=== PATIENT | male | born 1950 | race Caucasian/White ===

== ENCOUNTER 2023-09-20 18:46 | Inpatient (IN) | payer OTHER ==
[2023-09-20] MEDS ORDERED: ASPIRIN 81 MG CHEWABLE TABLET ONE (19:30)
[2023-09-20] MEDS ORDERED: HEPARIN/D5W 25,000 UNIT/500 ML BAG IV ONE (19:31)
[2023-09-20 19:32] LABS: Absolute Lymphocytes (CBC) 0.9 K/uL (0.7-4.9); Hematocrit 40.9 % (39.6-49.0); Lymphocytes % 13.3 % (15.3-44.8); MCV 89.4 fL (80-100); MPV 8.2 fL (7.6-11.3); Platelets 216 thou/uL (152-406); RBC Red Blood Cell Count 4.57 M/uL (4.33-5.43)
[2023-09-20 19:35] LABS: Protime INR 1.03
--- NOTE | 2023-09-20 19:45 | RAD REPORT ---
EXAM DESCRIPTION: RADChest Single View09/20/2023 7:34 pm CLINICAL HISTORY: CHEST PAIN COMPARISON: Thorax Wo Con dated 08/27/2023 TECHNIQUE: Portable AP view of the chest. FINDINGS: Patchy left basilar airspace opacities. Decreased inspiratory effort limits evaluation. N o pneumothorax or effusion. The cardiomediastinal contours are unremarkable. IMPRESSION: Patchy left basilar airspace opacities, may reflect pneumonia.
[2023-09-20 19:51] LABS: Albumin 3.5 g/dL (3.4-5.0); Bilirubin Direct 0.1 mg/dL (0-0.2); Bilirubin Indirect, Calculated 0.3 mg/dL (0.2-0.8); Bilirubin Total 0.4 mg/dL (0.2-1.0); Magnesium 1.9 mg/dL (1.6-2.4); Potassium 4.2 mEq/L (3.5-5.1); Protein, Total 7.1 g/dL (6.4-8.2); Troponin High Sensitivity 12.5 pg/mL (<58.9)
--- NOTE | 2023-09-20 20:25 | EDPHYS ---
Physician Documentation [facility] Name: Tay Case Age: 73 yrs Sex: Male : 1950 Arrival Date: 09/20/2023 Time: 18:46 Bed 3 Private MD: Orville Peter T ED Physician Maksim Watts HPI: 09/20 19:00 This 73 yrs old Male presents to ER via Ambulatory with complaints of Chest Pain. snw 19:00 The patient or guardian reports chest pain that is located primarily in the substernal snw area. Onset: suddenly, this morning, and became worse just prior to arrival, and became persistent. The pain does not radiate. Associated signs and symptoms: The patient has no apparent associated signs or symptoms. The chest pain is described as squeezing. Duration: The patient or guardian reports multiple episodes, became persistent. Modifying factors: The symptoms are alleviated by nothing. the symptoms are aggravated by nothing. Severity of pain: At its worst the pain was moderate. The patient has experienced similar episodes in the past. hx of pulmonary fibrosis, cardiomyopathy, 6 stents. Pt taken off blood thinners last year except lose dose asa. Historical: - Allergies: 18:54 No Known Allergies; ll1 - PMHx: 18:54 Coronary atherosclerosis; Hypertensive disorder; pulmonary fibrosis; ll1 - PSHx: 18:54 6 heart stents; ll1 - Immunization history:: Adult Immunizations up to date. - Social history:: Smoking status: Patient denies any tobacco usage or history of. ROS: 19:02 Constitutional: Negative for fever, chills, and weight loss, Eyes: Negative for injury, snw pain, redness, and discharge, ENT: Negative for injury, pain, and discharge, Neck: Negative for injury, pain, and swelling, Respiratory: Negative for shortness of breath, cough, wheezing, and pleuritic chest pain, Abdomen/GI: Negative for abdominal pain, nausea, vomiting, diarrhea, and constipation, Back: Negative for injury and pain, : Negative for injury, bleeding, discharge, and swelling, MS/Extremity: Negative for injury and deformity, Skin: Negative for injury, rash, and discoloration, Neuro: Negative for headache, weakness, numbness, tingling, and seizure, Psych: Negative for depression, anxiety, suicide ideation, homicidal ideation, and hallucinations, 19:02 Cardiovascular: Positive for chest pain, of the anterior aspect of left upper chest, mid-sternal area and left breast, Exam: 18:59 Constitutional: This is a well developed, well nourished patient who is awake, alert, snw and in no acute distress. Head/Face: Normocephalic, atraumatic. Eyes: Pupils equal round and reactive to light, extra-ocular motions intact. Lids and lashes normal. Conjunctiva and sclera are non-icteric and not injected. Cornea within normal limits. Periorbital areas with no swelling, redness, or edema. ENT: Nares patent. No nasal discharge, no septal abnormalities noted. Tympanic membranes are normal and external auditory canals are clear. Oropharynx with no redness, swelling, or masses, exudates, or evidence of obstruction, uvula midline. Mucous membranes moist. Neck: Trachea midline, no thyromegaly or masses palpated, and no cervical lymphadenopathy. Supple, full range of motion without nuchal rigidity, or vertebral point tenderness. No Meningismus. Chest/axilla: Normal chest wall appearance and motion. Nontender with no deformity. No lesions are appreciated. 18:59 Respiratory: Lungs have equal breath sounds bilaterally, clear to auscultation and percussion. No rales, rhonchi or wheezes noted. No increased work of breathing, no retractions or nasal flaring. Abdomen/GI: Soft, non-tender, with normal bowel sounds. No distension or tympany. No guarding or rebound. No evidence of tenderness throughout. Back: No spinal tenderness. No costovertebral tenderness. Full range of motion. Skin: Warm, dry with normal turgor. Normal color with no rashes, no lesions, and no evidence of cellulitis. MS/ Extremity: Pulses equal, no cyanosis. Neurovascular intact. Full, normal range of motion. Neuro: Awake and alert, GCS 15, oriented to person, place, time, and situation. Cranial nerves II-XII grossly intact. Motor strength 5/5 in all extremities. Sensory grossly intact. Cerebellar exam normal. Normal gait. Psych: Awake, alert, with orientation to person, place and time. Behavior, mood, and affect are within normal limits. 18:59 Cardiovascular: Rate: bradycardic, Rhythm: irregularly irregular, Pulses: no pulse deficits are appreciated, Heart sounds: S3, increased, Edema: is not appreciated, JVD: is noted bilaterally, Vital Signs: 18:55 BP 161 / 103; Pulse 62; Resp 17; Temp 97.6; Pulse Ox 95% on R/A; Weight 72.57 kg; ll1 Height 5 ft. 9 in. ; Pain 5/10; 19:34 BP 165 / 89; Pulse 63; Resp 18 S; Pulse Ox 96% on R/A; as6 20:59 BP 169 / 114; Pulse 61; Resp 14 S; Pulse Ox 97% on R/A; as6 22:53 BP 168 / 77; Pulse 65; Resp 19 S; Pulse Ox 97% on R/A; as6 23:36 BP 147 / 97; Pulse 66; Resp 17 S; Pulse Ox 97% on R/A; as6 18:55 Body Mass Index 23.63 (72.57 kg, 175.26 cm) ll1 18:55 Pain Scale: Adult ll1 MDM: 18:59 Patient medically screened. snw 19:03 Differential diagnosis: abnormal EKG, acute myocardial infarction, coronary artery snw disease congestive heart failure stable angina, unstable angina. The patient was given aspirin in the Emergency Department. Data reviewed: vital signs, nurses notes. 19:05 Counseling: I had a detailed discussion with the patient and/or guardian regarding the snw historical points, exam findings, and any diagnostic results supporting the discharge/admit diagnosis. ED course: pt takes daily baby asa but does take an antifibrotic agent for pulmonary fibrosis (Pirfenidone), denies use of blood pressure agent but does take alfuzosin.. 20:23 CATHERINE Risk Score: 1 - patient's age is greater or equal to 65 years, 1 - Three or more snw CAD risk factors, 1- Known CAD, 1 - ASA use in past 7 days, 1 - Recent [<24hrs] Severe Angina, TOTAL SCORE = 5. Management of patient was discussed with the following: Hospitalist: Dr. Falcon will accept for further work up. Historians other than the Patient: Spouse/Significant Other: Med list obtained. Care significantly affected by the following chronic conditions: Diabetes, Hypertension, pulmonary fibrosis. 20:33 Response to treatment: continues with some "discomfort" declines pain medication now, snw Noted several monophasic PVC's on monitor when HR dips to 50s. 09/20 18:49 Order name: Basic Metabolic Panel; Complete Time: 19:52 snw 09/20 18:49 Order name: CBC with Diff; Complete Time: 19:35 snw 09/20 18:49 Order name: LFT's; Complete Time: 19:52 snw 09/20 18:49 Order name: Magnesium; Complete Time: 19:52 snw 09/20 18:49 Order name: NT PRO-BNP; Complete Time: 19:52 snw 09/20 18:49 Order name: PT-INR; Complete Time: 19:36 snw 09/20 18:49 Order name: Troponin HS; Complete Time: 19:52 snw 09/20 21:22 Order name: CBC with Automated Diff [facility] 09/20 21:22 Order name: CBC with Automated Diff [facility] 09/20 21:22 Order name: Comprehensive Metabolic Panel [facility] 09/20 21:22 Order name: Comprehensive Metabolic Panel [facility] 09/20 21:22 Order name: Lipid Profile [facility] 09/20 21:22 Order name: Lipid Profile [facility] 09/20 21:22 Order name: Magnesium [facility] 09/20 21:22 Order name: Magnesium [facility] 09/20 21:22 Order name: NT PRO-BNP [facility] 09/20 21:22 Order name: NT PRO-BNP [facility] 09/20 21:22 Order name: Troponin High Sensitivity [facility] 09/20 21:22 Order name: Troponin High Sensitivity; Complete Time: 23:15 [facility] 09/20 21:22 Order name: Troponin High Sensitivity [facility] 09/20 23:31 Order name: Ptt, Activated as6 09/20 18:49 Order name: XRAY Chest (1 view); Complete Time: 19:48 snw 09/20 19:52 Interpretation: Abnormal: pulmonary fibrosis hx, may need CT PE study for clarification.snw 09/20 21:22 Order name: Echo with Doppler [facility] 09/20 21:22 Order name: Echo with Doppler [facility] 09/20 18:49 Order name: EKG; Complete Time: 18:50 snw 09/20 21:22 Order name: CONS Physician Consult [facility] 09/20 18:49 Order name: Cardiac monitoring; Complete Time: 19:26 snw 09/20 18:49 Order name: EKG - Nurse/Tech; Complete Time: 19:26 snw 09/20 18:49 Order name: IV Saline Lock; Complete Time: 19: snw 09/20 18:49 Order name: Labs collected and sent; Complete Time: : snw 09/20 18:49 Order name: O2 Per Protocol; Complete Time: : snw 09/20 18:49 Order name: O2 Sat Monitoring; Complete Time: 19: snw EC:10 Rate is 61 beats/min. Rhythm is irregular. QRS [place] is Normal. [place] interval is normal. snw QRS interval is normal. T waves are Inverted in leads III, aVR. Clinical impression: NSR w/ Non-specific ST/T Changes and low voltage EKG. Administered Medications: 19:15 Drug: Aspirin PO Chewable Tablet 324 mg PO once; 81 mg tablets x 4 Route: PO; as6 23:37 Follow up: Response: No adverse reaction as6 19:30 Drug: Heparin (ND Drip) 12 units/kg/[place] - ([place] [address] units, D5W IV 500 ml) IV at as6 calculated rate Per protocol; Max initial rate 1000 units/hr {Co-Signature: rv (Dominick Melo RN).} Route: IV; Rate: calculated rate; Site: right forearm; 23:37 Follow up: Response: No adverse reaction; IV Status: Infusion continued upon admission; as6 IV Intake: 100ml Disposition Summary: 09/20/23 20:25 Hospitalization Ordered Notes: Hospitalization Status: Inpatient Admission snw Provider: Denisha Falcon snw Condition: Stable snw Problem: an acute exacerbation snw Symptoms: are unchanged snw Bed/Room Type: Standard snw Location: Telemetry/MedSurg (Inpatient)(09/20/23 22:19) jr12 Room Assignment: 217(09/20/23 23:35) as6 Diagnosis - Chest pain, unspecified snw - Pulmonary fibrosis, unspecified snw Forms: - Medication Reconciliation Form snw - SBAR form snw - Leadership Thank You Letter snw Addendum: 09/23/2023 07:25 I was immediately available for consultation during this patient's visit. I did not e c2 personally see the patient or guide the patient's care.. Signatures: Dispatcher [employer] Laureen Jefferson FNP-C OFFICE ASSISTANT-Csnw Dominick Melo, QUINCY RN rv Sonal Meneses RN RN ll1 Eugene Johnston RN RN as6 Maksim Watts MD MD [address] [place] [id number] Dominick Melo RN rv Corrections: (The following items were deleted from the chart) 09/20 21:03 20:25 Telemetry/MedSurg (Inpatient) snw sn 21:03 20:25 snw sn 22:19 21:03 Intensive Care Unit sn jr12 22:19 21:03 sn jr12 23:01 22:19 217 jr12 rv 23:35 23:01 rv as6
--- NOTE | 2023-09-20 20:25 | ER ---
Nurse's Notes [facility] Name: Tay Case Age: 73 yrs Sex: Male : 1950 Arrival Date: 09/20/2023 Time: 18:46 Bed 3 Private MD: Orville Peter T Diagnosis: Chest pain, unspecified;Pulmonary fibrosis, unspecified Presentation: 09/20 18:55 Chief complaint: Patient states: L sided CP since noon. Coronavirus screen: Vaccine ll1 status: Patient reports receiving the 2nd dose of the covid vaccine. Client denies travel out of the [place] in the last 14 days. At this time, the client does not indicate any symptoms associated with coronavirus-19. Ebola Screen: Patient denies travel to an Ebola-affected area in the 21 days before illness onset. Initial Sepsis Screen: Does the patient meet any 2 criteria? No. Patient's initial sepsis screen is negative. Does the patient have a suspected source of infection? No. Patient's initial sepsis screen is negative. Risk Assessment: Do you want to hurt yourself or someone else? Patient reports no desire to harm self or others. Onset of symptoms was September 20, 2023. 18:55 Method Of Arrival: Ambulatory ll1 18:55 Acuity: BILLY 3 ll1 Triage Assessment: 18:56 General: Appears in no apparent distress. Behavior is calm, cooperative, appropriate ll1 for age. Pain: Complains of pain in L chest Pain currently is 5 out of 10 on a pain scale. Quality of pain is described as squeezing. Cardiovascular: Reports chest pain. Historical: - Allergies: 18:54 No Known Allergies; ll1 - PMHx: 18:54 Coronary atherosclerosis; Hypertensive disorder; pulmonary fibrosis; ll1 - PSHx: 18:54 6 heart stents; ll1 - Immunization history:: Adult Immunizations up to date. - Social history:: Smoking status: Patient denies any tobacco usage or history of. Screenin:27 [facility] ED Fall Risk Assessment (Adult) Score/Fall Risk Level 0 - 2 = Low Risk. Abuse as6 screen: Denies threats or abuse. Denies injuries from another. Nutritional screening: No deficits noted. Tuberculosis screening: No symptoms or risk factors identified. Assessment: 19:34 General: Appears in no apparent distress. comfortable, Behavior is calm, cooperative, as6 appropriate for age. Pain: Complains of pain in chest Quality of pain is described as dull, "discomfort". Neuro: Level of Consciousness is awake, alert, obeys commands, Oriented to person, place, time, situation. Cardiovascular: Reports chest pain, lightheadedness, palpitations, Denies shortness of breath, Heart tones S1 S2 present. Respiratory: Respiratory effort is even, unlabored, Respiratory pattern is regular, symmetrical, Breath sounds are clear bilaterally. GI: No deficits noted. No signs and/or symptoms were reported involving the gastrointestinal system. : No deficits noted. No signs and/or symptoms were reported regarding the genitourinary system. EENT: No deficits noted. No signs and/or symptoms were reported regarding the EENT system. Derm: Skin is intact, is healthy with good turgor. Musculoskeletal: Circulation, motion, and sensation intact. 23:06 Reassessment: Patient appears in no apparent distress at this time. Patient and/or as6 family updated on plan of care and expected duration. Pain level reassessed. Patient is alert, oriented x 3, equal unlabored respirations, skin warm/dry/pink. Vital Signs: 18:55 BP 161 / 103; Pulse 62; Resp 17; Temp 97.6; Pulse Ox 95% on R/A; Weight 72.57 kg; ll1 Height 5 ft. 9 in. ; Pain 5/10; 19:34 BP 165 / 89; Pulse 63; Resp 18 S; Pulse Ox 96% on R/A; as6 20:59 BP 169 / 114; Pulse 61; Resp 14 S; Pulse Ox 97% on R/A; as6 22:53 BP 168 / 77; Pulse 65; Resp 19 S; Pulse Ox 97% on R/A; as6 23:36 BP 147 / 97; Pulse 66; Resp 17 S; Pulse Ox 97% on R/A; as6 18:55 Body Mass Index 23.63 (72.57 kg, 175.26 cm) ll1 18:55 Pain Scale: Adult ll1 ED Course: 18:48 Patient arrived in ED. im 18:50 Laureen Alan FNP-C is [facility]. snw 18:50 Maksim Watts MD is Attending Physician. snw 18:54 Arm band placed on Patient placed in an exam room, on a stretcher. ll1 18:56 Triage completed. ll1 18:59 Orville Peter MD is Private Physician. snw 19:03 Eugene Johnston, QUINCY is Primary Nurse. as6 19:20 Inserted saline lock: 20 gauge in right antecubital area, using aseptic technique. as6 Blood collected. 19:20 Inserted saline lock: 20 gauge in right forearm, using aseptic technique. as6 19:27 Troponin HS Sent. as6 19:27 PT-INR Sent. as6 19:27 NT PRO-BNP Sent. as6 19:27 Magnesium Sent. as6 19:27 LFT's Sent. as6 19:27 CBC with Diff Sent. as6 19:27 Basic Metabolic Panel Sent. as6 19:36 XRAY Chest (1 view) In Process Unspecified. EDMS 19:37 Bed in low position. Call light in reach. as6 20:24 Denisha Falcon MD is Hospitalizing Provider. snw 23:06 Provided Education on: need for admit. as6 23:06 No provider procedures requiring assistance completed. Patient admitted, IV remains in as6 place. Administered Medications: 19:15 Drug: Aspirin PO Chewable Tablet 324 mg PO once; 81 mg tablets x 4 Route: PO; as6 23:37 Follow up: Response: No adverse reaction as6 19:30 Drug: Heparin ([place] Drip) 12 units/kg/[place] - ([place] [address] units, D5W IV 500 ml) IV at as6 calculated rate Per protocol; Max initial rate 1000 units/hr {Co-Signature: rv (Dominick Melo RN).} Route: IV; Rate: calculated rate; Site: right forearm; 23:37 Follow up: Response: No adverse reaction; IV Status: Infusion continued upon admission; as6 IV Intake: 100ml Medication: 19:37 VIS not applicable for this client. as6 Intake: 23:37 IV: 100ml; Total: 100ml. as6 Outcome: 20:25 Decision to Hospitalize by Provider. snw 23:06 Condition: stable as6 23:06 Instructed on the need for admit, 23:36 Admitted to Med/surg accompanied by nurse, via wheelchair, room 217, with chart, as6 23:39 Patient left the ED. rv Signatures: Dispatcher [facility] EDAK Laureen Alan, STEEL TESTER-C STEEL TESTER-Csnw Dominick Melo, RN RN rv Gideon, Sonal, RN RN ll1 Eugene Johnston, RN RN as6 Marsha Dudley Ronaldo RN rv
--- NOTE | 2023-09-20 21:13 | P.HP ---
Certification for Inpatient Patient admitted to: Inpatient With expected LOS: >2 Midnights Patient will require the following post-hospital care: None Practitioner: I am a practitioner with admitting privileges, knowledge of patient current condition, hospital course, and medical plan of care. Services: Services provided to patient in accordance with Admission requirements found in Title 42 Section 412.3 of the Code of Federal Regulations Patient History Date of Service: 09/20/23 Reason for admission: Unstable angina History of Present Illness: Patient is a 73-year-old gentleman who has a history of coronary artery disease status post 6 stents, history of pulmonary fibrosis for which he moved down here from [place] to try to get a lung transplant. He presented to the hospital having some chest pressure. He said he had extensive cardiac work-up done a year ago when he was on the transplant list. After given his cardiac work-up he had an occlusion of one of his coronary arteries for which she had a stent placed. He was on Brilinta for about a year. A month ago Dr. Garcia did a cardiac stress test which came back unremarkable. At that point, he was taken off the Brilinta. He is also had issues with his blood pressure. Is been very labile over the last couple years. He was on lisinopril and Lopressor which was stopped. He states his blood pressure runs with a systolic under 120s. Today he has been having some chest pressure. His mean arterial blood pressure is significantly elevated. He has been having persistent chest pressure that is not relieving. He is on Ranexa for angina. He said normally that helps with the chest pressure but today it has not helped him. He came into the emergency room for further evaluation. In the ER she was evaluated by nurse practitioner, Florinda Alan. Patient was started on a heparin drip. We will continue with antiplatelet therapy and statin therapy. We will continue with strict blood pressure control. Patient will be admitted to the hospital for further evaluation. Home medications list reviewed: No - Past Medical/Surgical History -: CAD with stent -: Pulmonary fibrosis -: Pulmonary hypertension -: Cardiac catheterization - Family History Father Family History: Reviewed- Non-Contributory - Social History Smoking Status: Former smoker Review of Systems 10-point ROS is otherwise unremarkable Physical Examination - Vital Signs Temperature: 98 F Blood Pressure: 180/110 Pulse: 80 Respirations: 18 Pulse Ox (%): 95 - Physical Exam General: Alert, In no apparent distress, Oriented x3 HEENT: Atraumatic, PERRLA, Mucous membr. moist/pink, EOMI, Sclerae nonicteric Neck: Supple, 2+ carotid pulse no bruit, No LAD, Without JVD or thyroid abnormality Respiratory: Diminished, Crackles/rales Cardiovascular: Regular rate/rhythm, Normal S1 S2, Systolic murmur Gastrointestinal: Normal bowel sounds, Soft and benign, Non-distended, No tenderness Musculoskeletal: No clubbing, No swelling, No tenderness Integumentary: No rashes Neurological: Normal gait, Normal speech, Normal strength at 5/5 x4 extr, Normal tone, Sensation intact, Cranial nerves 3-12 intact, Normal affect Lymphatics: No axilla or inguinal lymphadenopathy - Studies Laboratory Data (last 24 hrs) 09/20/23 09/20/23 09/20/23 19:26 19:26 19:26 WBC 6.50 Hgb 13.6 Hct 40.9 Plt Count 216 PT 11.3 INR 1.03 Sodium 136 Potassium 4.2 BUN 19 H Creatinine 1.38 H Glucose 162 H Magnesium 1.9 Total Bilirubin 0.4 AST 15 ALT 22 Alkaline Phosphatase 130 H Assessment & Plan - Problems (Diagnosis) (1) Unstable angina Current Visit: Yes Status: Acute (2) History of heart artery stent Current Visit: Yes Status: Acute (3) Pulmonary hypertension Current Visit: Yes Status: Acute - Plan -High-sensitivity troponin -Cardiology consultation -Echocardiogram and stress test per cardiology recommendation -Repeat EKG -Work-up for other etiologies of cardiac chest pain if troponins remain negative -Lipid profile -Spray Drier regarding modifying risk for cardiac disease - Advance Directives Does patient have a Living Will: No Does patient have a Durable POA for Healthcare: No
[2023-09-20] MEDS ORDERED: ONDANSETRON 4 MG/2 ML VIAL IV PRN (21:14)
[2023-09-20] MEDS ORDERED: ALPRAZOLAM 0.25 MG TABLET PO PRN (21:14)
[2023-09-20] MEDS ORDERED: HYDRALAZINE HCL 20 MG/ML VIAL IV PRN (21:14)
[2023-09-20] MEDS ORDERED: HYDRALAZINE HCL 20 MG/ML VIAL ONE (22:58)
[2023-09-21 00:45] VITALS: BMI 23.1
[2023-09-21] MEDS ORDERED: MORPHINE 2 MG/ML SYR IV PRN (01:39)
[2023-09-21] MEDS ORDERED: predniSONE 20 MG TAB PO ONE (01:39)
[2023-09-21] MEDS ORDERED: FORMOTEROL IH SCH (01:45)
[2023-09-21] MEDS ORDERED: GLYCOPYR IH SCH (01:45)
[2023-09-21] MEDS ORDERED: BUDESONIDE IH SCH (01:45)
[2023-09-21 03:31] LABS: Absolute Lymphocytes (CBC) 1.1 K/uL (0.7-4.9); Hematocrit 37.6 % (39.6-49.0); Lymphocytes % 15.8 % (15.3-44.8); MCV 88.9 fL (80-100); MPV 8.6 fL (7.6-11.3); Platelets 205 thou/uL (152-406); RBC Red Blood Cell Count 4.23 M/uL (4.33-5.43)
[2023-09-21 03:44] LABS: Albumin 3.4 g/dL (3.4-5.0); Bilirubin Total 0.3 mg/dL (0.2-1.0); Magnesium 2.1 mg/dL (1.6-2.4); Protein, Total 6.8 g/dL (6.4-8.2)
[2023-09-21] MEDS ORDERED: GLUCAGON 1 MG/VIAL IM PRN (07:39)
[2023-09-21] MEDS ORDERED: D50W 25 GM/50 ML SYRINGE IV PRN (07:39)
[2023-09-21] MEDS: VALSARTAN 80 MG TAB PO SCH ×2 (09:01→20:07)
[2023-09-21] MEDS: PANTOPRAZOLE 40MG TABLET PO SCH (09:01)
[2023-09-21] MEDS: ENOXAPARIN 80 MG/0.8 ML SQ SCH ×2 (09:01→20:05)
[2023-09-21] MEDS: METOPROLOL TAR 25 MG TAB PO SCH ×2 (09:01→20:03)
[2023-09-21] MEDS: ASPIRIN 325 MG TAB PO SCH (09:02)
[2023-09-21] MEDS: INSULIN GLARGINE 100 UNIT/ML SQ SCH (09:02)
--- NOTE | 2023-09-21 09:18 | P.PN ---
Date of Service: 09/21/23 Subjective: Still having "squeezing" chest pain although improved from last night Denies shortness of breath over baseline On nasal cannula oxygen-has at home ROS: 10 point ROS as noted above, otherwise negative Physical exam GEN: Alert, oriented, NAD HEENT: Normal conjunctiva, sclera anicteric CV: Regular rate and rhythm, no edema Pulm: Nonlabored respirations on room air ABD: Soft, nontender, nondistended MSK: No joint tenderness Integumentary: No rashes Neuro: Normal speech, normal affect Vitals reviewed Problem List Unstable angina-history of CAD Pulmonary fibrosis/pulmonary hypertension Diabetes mellitus type 2insulin-dependent GERD Hypertension Plan Unstable angina-history of CAD Reports having stress test about 1 to 2 months ago that was normal Was taken off of his Brilinta at that time Had a heart catheterization in 2021 with stent placement [address] Continue home medications, aspirin, therapeutic Lovenox Cardiology consult, echocardiogram ordered Pulmonary fibrosis/pulmonary hypertension Home medications continued, at baseline oxygen requirement/breathing Diabetes mellitus type 2insulin-dependent ACHS Accu-Chek, sliding scale insulin, ADA diet GERD Continue pantoprazole Hypertension Continue metoprolol VTE: Therapeutic Lovenox Code: Full Dispo: Discharge home 24 to 48 hours Time Spent Managing Pts Care (In Minutes): 35
[2023-09-21] MEDS: INSULIN REGULAR (HUMAN) 100 UNIT/ML SQ SCH ×3 (11:36→20:10)
[2023-09-21] MEDS ORDERED: ATORVASTATIN 20 MG TAB PO SCH (21:00)
[2023-09-21 22:35] VITALS: O2SAT 96
[2023-09-22] MEDS: INSULIN REGULAR (HUMAN) 100 UNIT/ML SQ SCH ×2 (07:30→11:30)
[2023-09-22] MEDS: METOPROLOL TAR 25 MG TAB PO SCH (08:00)
[2023-09-22] MEDS: ASPIRIN 325 MG TAB PO SCH (08:39)
[2023-09-22] MEDS: VALSARTAN 80 MG TAB PO SCH (08:39)
[2023-09-22] MEDS: ENOXAPARIN 80 MG/0.8 ML SQ SCH (08:40)
[2023-09-22] MEDS: PANTOPRAZOLE 40MG TABLET PO SCH (08:40)
[2023-09-22] MEDS: INSULIN GLARGINE 100 UNIT/ML SQ SCH (08:41)
[2023-09-22 09:08] VITALS: TEMP 97
--- NOTE | 2023-09-22 10:30 | P.PN ---
Date of Service: 09/22/23 Subjective: No chest pain now since yesterday Denies shortness of breath over baseline On nasal cannula oxygen-has at home ROS: 10 point ROS as noted above, otherwise negative Physical exam GEN: Alert, oriented, NAD HEENT: Normal conjunctiva, sclera anicteric CV: Regular rate and rhythm, no edema Pulm: Nonlabored respirations on room air ABD: Soft, nontender, nondistended MSK: No joint tenderness Integumentary: No rashes Neuro: Normal speech, normal affect Vitals reviewed Problem List Unstable angina-history of CAD Pulmonary fibrosis/pulmonary hypertension Diabetes mellitus type 2insulin-dependent GERD Hypertension Plan Unstable angina-history of CAD Reports having stress test about 1 to 2 months ago that was normal Was taken off of his Brilinta at that time Had a heart catheterization in 2021 with stent placement [address] Continue home medications, aspirin, therapeutic Lovenox Cardiology consult, echocardiogram ordered pain improved today, awaiting echo/cardiology eval Pulmonary fibrosis/pulmonary hypertension Home medications continued, at baseline oxygen requirement/breathing Diabetes mellitus type 2insulin-dependent ACHS Accu-Chek, sliding scale insulin, ADA diet GERD Continue pantoprazole Hypertension Continue metoprolol VTE: Therapeutic Lovenox Code: Full Dispo: Discharge home 24 to 48 hours after cardiology eval Time Spent Managing Pts Care (In Minutes): 35
--- NOTE | 2023-09-22 16:08 | P.DS ---
Admission Date: 09/20/23 Discharge Date: 09/22/23 Disposition: ROUTINE DISCHARGE Discharge Condition: GOOD Reason for Admission: Unstable angina Procedures: Problem List Unstable angina-history of CAD Pulmonary fibrosis/pulmonary hypertension Diabetes mellitus type 2insulin-dependent GERD Hypertension Brief History of Present Illness: Patient is a 73-year-old gentleman who has a history of coronary artery disease status post 6 stents, history of pulmonary fibrosis for which he moved down here from [place] to try to get a lung transplant. He presented to the hospital having some chest pressure. He said he had extensive cardiac work-up done a year ago when he was on the transplant list. After given his cardiac work-up he had an occlusion of one of his coronary arteries for which she had a stent placed. He was on Brilinta for about a year. A month ago Dr. Garcia did a cardiac stress test which came back unremarkable. At that point, he was taken o ff the Brilinta. He is also had issues with his blood pressure. Is been very labile over the last couple years. He was on lisinopril and Lopressor which was stopped. He states his blood pressure runs with a systolic under 120s. Today he has been having some chest pressure. His mean arterial blood pressure is significantly elevated. He has been having persistent chest pressure that is not relieving. He is on Ranexa for angina. He said normally that helps with the chest pressure but today it has not helped him. He came into the emergency room for further evaluation. In the ER she was evaluated by nurse practitioner, Florinda Alan. Patient was started on a heparin drip. We will continue with antiplatelet therapy and statin therapy. We will continue with strict blood pressure control. Patient will be admitted to the hospital for further evaluation. Hospital Course: Patient was admitted to the hospital for chest pain, he had pain overnight on day of admission but became pain free later in the morning on 09/21. He has remained chest pain free since then and his troponins have remained negative x4. Due to unforeseen circumstances a glass beveller was not available to see patient today. Discussed staying again overnight for an evaluation from cardiology. Patient stated that since he is feeling better now without pain he would rather go home and follow up outpatient with cardiology. His last stress was one month ago and reportedly normal, last cath one year ago with stent placement. Discussed calling cardiology in the morning to schedule appointment and strict return precautions. Continue all home medications. Vital Signs/Physical Exam: Temp Pulse Resp BP Pulse Ox 97.0 F 46 L 16 147/73 H 95 09/22/23 12:00 09/22/23 12:00 09/22/23 12:00 09/22/23 12:00 09/22/23 12:00 General: Alert, In no apparent distress, Oriented x3 HEENT: Atraumatic, PERRLA Neck: Supple, JVD not distended Respiratory: Clear to auscultation bilaterally Cardiovascular: Regular rate/rhythm, Normal S1 S2 Gastrointestinal: Normal bowel sounds Musculoskeletal: No tenderness Integumentary: No rashes Neurological: Normal speech Laboratory Data at Discharge: WBC 6.70 thou/uL (4.3-10.9) 09/21/23 02:30 Hgb 12.8 g/dL (13.6-17.9) L 09/21/23 02:30 Hct 37.6 % (39.6-49.0) L 09/21/23 02:30 Plt Count 205 thou/uL (152-406) 09/21/23 02:30 PT 11.3 SECONDS (9.5-12.5) 09/20/23 19:26 INR 1.03 09/20/23 19:26 APTT 42.2 SECONDS (24.3-36.9) H 09/20/23 23:35 Sodium 139 mEq/L (136-145) 09/21/23 02:30 Potassium 4.0 mEq/L (3.5-5.1) 09/21/23 02:30 BUN 19 mg/dL (7-18) H 09/21/23 02:30 Creatinine 1.27 mg/dL (0.70-1.30) 09/21/23 02:30 Glucose 147 mg/dL (74-106) H 09/21/23 02:30 Magnesium 2.1 mg/dL (1.6-2.4) 09/21/23 02:30 Total Bilirubin 0.3 mg/dL (0.2-1.0) 09/21/23 02:30 AST 15 U/L (15-37) 09/21/23 02:30 ALT 23 U/L (16-61) 09/21/23 02:30 Alkaline Phosphatase 121 U/L (45-117) H 09/21/23 02:30 Triglycerides 152 mg/dL (<150) H 09/21/23 02:30 Cholesterol 108 mg/dL (<200) 09/21/23 02:30 HDL Cholesterol 35 mg/dL (40-60) L 09/21/23 02:30 Cholesterol/HDL Ratio 3.09 09/21/23 02:30 Home Medications: Albuterol Sulfate [Proair Digihaler] 90 mcg IH PRN 09/21/23 Alfuzosin HCl [Alfuzosin HCl ER] 10 mg PO DAILY 09/21/23 Aspirin [Aspirin EC] 81 mg PO DAILY 09/21/23 Atorvastatin Calcium [Lipitor] 40 mg PO DAILY 09/21/23 Budesonide/Glycopyr/Formoterol [Breztri Aerosphere Inhaler] 160 mcg IH PRN 09/21/23 Dapagliflozin Propanediol [Farxiga] 5 mg PO DAILY 09/21/23 Fluvoxamine Maleate 50 mg PO BID 09/21/23 Insulin Glargine/Lixisenatide [Soliqua 100 Unit-33 Mcg/ml Pen] 20 units SQ DAILY 09/21/23 Metformin HCl [Glucophage*] 500 mg PO BID 09/21/23 Pantoprazole Sodium [Protonix] 40 mg PO DAILY 09/21/23 Ranolazine [Ranolazine ER] 500 mg PO BID 09/21/23 Physician Discharge Instructions: Patient was admitted to the hospital for chest pain, he had pain overnight on day of admission but became pain free later in the morning on 09/21. He has remained chest pain free since then and his troponins have remained negative x4. Due to unforeseen circumstances a glass beveller was not available to see patient today. Discussed staying again overnight for an evaluation from cardiology. Patient stated that since he is feeling better now without pain he would rather go home and follow up outpatient with cardiology. His last stress was one month ago and reportedly normal, last cath one year ago with one stent placement. Discussed calling cardiology in the morning to schedule appointment and strict return precautions. Continue all home medications. Diet: AHA Activity: Ad janice Followup: Ramsey Oliva MD [ACTIVE - CAN ADMIT] - Orville Peter MD [Primary Care Provider] - 2-3 Days Time spent managing pt's care (in minutes): 35
[2023-09-22 16:17] VITALS: BP 123/69
--- NOTE | 2023-09-23 07:21 | ECHO ---
HEIGHT: 5 ft 9 in WEIGHT: 156 lb 11.2 oz DATE OF STUDY: 09/22/[address]: Denisha Falcon MD 2-DIMENSIONAL: YES M.MODE: YES DOPPLER: YES COLOR FLOW: YES TDS: PORTABLE: YES DEFINITY: BUBBLE STUDY: DIAGNOSIS: CORONARY ARTERY DISEASE CARDIAC HISTORY: CATHERIZATION: YES SURGERY: NO PROSTHETIC VALVE: NO PACEMAKER: NO MEASUREMENTS (cm) DIASTOLIC (NORMALS) SYSTOLIC (NORMALS) IVSd 1.2 (0.6-1.2) LA Diam 3.8 (1.9-4.0) LVEF 51% LVIDd 3.7 (3.5-5.7) LVIDs 2.7 (2.0-3.5) %FS 25% LVPWd 1.2 (0.6-1.2) Ao Diam 3.0 (2.0-3.7) 2 DIMENSIONAL ASSESSMENT: RIGHT ATRIUM: MILDLY DILATED LEFT ATRIUM: MILD TO MODERATE DILATED RIGHT VENTRICLE: NORMAL LEFT VENTRICLE: NORMAL, 50-55% TRICUSPID VALVE: NORMAL TRACE TRICUSPID REGURGITATION MITRAL VALVE: NORMAL, TRACE MITRAL REGURGITATION PULMONIC VALVE: NORMAL AORTIC VALVE: NORMAL PERICARDIAL EFFUSION: NONE AORTIC ROOT: LEFT VENTRICULAR WALL MOTION: DOPPLER/COLOR FLOW: COMMENTS: 1. MILDLY DILATED RIGHT ATRIUM 2. MILD TO MODERATE DILATED LEFT ATRIUM 3. TRACE TRICUSPID REGURGITATION 4. TRACE MITRAL REGURGITATION TECHNOLOGIST: SAL ZIMMER
--- NOTE | 2023-09-24 17:35 | EKG ---
Test Date: 2023-09-20 Test Time: 19:08:23 General Supervisor: MEASUREMENT RESULTS: Intervals: Rate: 61 WY: 152 QRSD: 90 QT: 456 QTc: 459 [place]: P: 25 WY: 152 QRS: 32 T: 12 INTERPRETIVE STATEMENTS: Sinus rhythm with marked sinus arrhythmia Otherwise normal ECG No previous ECG available for comparison Electronically Signed On 09-24-23 17:26:01 PRESS SHOP SUPERVISOR by Ramsey Oliva
== END 2023-09-22 17:00 | disposition home or self-care (01) | DRG 303 ==
LOC: ER 18:46 → ERHOLD 21:15 → 2ND 22:40
PROVIDERS: ADMIT Hospitalist; ATTEND Hospitalist
DX: I25.110 Atherosclerotic heart disease of native coronary artery with unstable angina pectoris (principal); I10 Essential (primary) hypertension; E11.9 Type 2 diabetes mellitus without complications; I49.3 Ventricular premature depolarization; J84.10 Pulmonary fibrosis, unspecified; K21.9 Gastro-esophageal reflux disease without esophagitis; I27.20 Pulmonary hypertension, unspecified; I25.10 Atherosclerotic heart disease of native coronary artery without angina pectoris; Z79.4 Long term (current) use of insulin; Z95.5 Presence of coronary angioplasty implant and graft; Z87.891 Personal history of nicotine dependence; Z79.82 Long term (current) use of aspirin; Z79.84 Long term (current) use of oral hypoglycemic drugs; Z79.899 Other long term (current) drug therapy
CPT/HCPCS: 36415; 71045; 80048; 80053; 80061; 80076; 82947; 83735; 83880; 84484; 85025; 85610; 85730; 93005; 93306; 96365; 96366; 99285; J0360; J2270; J7512

== ENCOUNTER 2023-10-08 07:35 | Observation (INO) | payer OTHER ==
[2023-10-08 08:08] LABS: Absolute Lymphocytes (CBC) 0.7 K/uL (0.7-4.9); Hematocrit 39.7 % (39.6-49.0); Lymphocytes % 10.1 % (15.3-44.8); MCV 90.5 fL (80-100); MPV 8.4 fL (7.6-11.3); Platelets 218 thou/uL (152-406); RBC Red Blood Cell Count 4.39 M/uL (4.33-5.43)
--- NOTE | 2023-10-08 08:20 | RAD REPORT ---
EXAM DESCRIPTION: Vilma Single View10/08/2023 8:06 am CLINICAL HISTORY: Chest pain COMPARISON: September 20, 2023 FINDINGS: Arvz-iy-dxnxrite bilateral subpleural interstitial opacities are unchanged probably pulmon renée fibrosis. A small lung nodules unchanged The heart is mildly enlarged
[2023-10-08 08:21] LABS: Potassium 4.3 mEq/L (3.5-5.1); Troponin High Sensitivity 13.2 pg/mL (<58.9)
--- NOTE | 2023-10-08 08:27 | ER ---
Nurse's Notes [facility] Name: Tay Case Age: 73 yrs Sex: Male : 1950 Arrival Date: 10/08/2023 Time: 07:35 Bed 4 Private MD: Diagnosis: Chest pain, unspecified;Atherosclerotic heart disease of [place] coronary artery;Essential (primary) hypertension Presentation: 10/08 07:45 Chief complaint: Patient states: L CP for 2 days. Radiates into L arm. Saw Dr. Oliva's 1 quality control assistant yesterday, angiogram scheduled 10/23. Coronavirus screen: Vaccine status: Patient reports receiving the 2nd dose of the covid vaccine. Client denies travel out of the [place] in the last 14 days. At this time, the client does not indicate any symptoms associated with coronavirus-19. Ebola Screen: Patient denies travel to an Ebola-affected area in the 21 days before illness onset. Initial Sepsis Screen: Does the patient meet any 2 criteria? No. Patient's initial sepsis screen is negative. Does the patient have a suspected source of infection? No. Patient's initial sepsis screen is negative. Risk Assessment: Do you want to hurt yourself or someone else? Patient reports no desire to harm self or others. Onset of symptoms was October 07, 2023. 07:45 Method Of Arrival: Ambulatory 1 07:45 Acuity: BILLY 3 ll1 Triage Assessment: 07:47 General: Appears in no apparent distress. Behavior is calm, cooperative, appropriate ll1 for age. Pain: Complains of pain in L chest Pain radiates to left arm Pain currently is 6 out of 10 on a pain scale. Cardiovascular: Chest pain is described as mild, is located in left anterior. Historical: - Allergies: 07:45 No Known Allergies; ll1 - Home Meds: 08:08 clopidogrel 75 mg oral tablet daily [Active]; pantoprazole 40 mg oral tablet, delayed aa5 release (enteric coated) once [Active]; alfuzosin 10 mg oral Tablet, Extended Release 24 hr once [Active]; metformin 500 mg Oral tablet 2 times per day [Active]; ranolazine 500 mg oral Tablet, Extended Release 12 hr 2 times per day [Active]; Farxiga 5 mg oral tablet [Active]; atorvastatin 40 mg oral tablet [Active]; fluvoxamine 50 mg oral tablet 2 times per day [Active]; - PMHx: 07:45 coronary atherosclerosis; Hypertensive disorder; pulmonary fibrosis; ll1 - PSHx: 07:45 6 heart stents; ll1 - Immunization history:: Adult Immunizations up to date. - Social history:: Smoking status: Patient denies any tobacco usage or history of. Screenin:00 [facility] ED Fall Risk Assessment (Adult) History of falling in the last 3 months, aa5 including since admission No falls in past 3 months (0 pts). Abuse screen: Denies threats or abuse. Nutritional screening: No deficits noted. Tuberculosis screening: No symptoms or risk factors identified. Assessment: 07:45 General: Appears comfortable, Behavior is calm, cooperative. Pain: Complains of pain in aa5 anterior aspect of left upper chest Pain radiates to left arm Pain currently is 6 out of 10 on a pain scale. Quality of pain is described as sharp, shooting, Pain began 1 day ago. Is continuous. Neuro: Level of Consciousness is awake, alert, obeys commands, Oriented to person, place, time, situation. Cardiovascular: Heart tones S1 S2 present Rhythm is irregular. Respiratory: Airway is patent Respiratory effort is even, unlabored, Respiratory pattern is regular, symmetrical, Breath sounds are clear bilaterally. GI: Abdomen is round non-distended, Bowel sounds present X 4 quads. Abd is soft and non tender X 4 quads. : No signs and/or symptoms were reported regarding the genitourinary system. EENT: No signs and/or symptoms were reported regarding the EENT system. Derm: Skin is dry, Skin is pale, Skin temperature is warm Bruising that is dark purple, green, yellow, on lower abdomen, about the bruising the pt states "I was in the hospital a couple weeks ago for chest pain and they were giving me heparin shots and stuff". Musculoskeletal: Range of motion: intact in all extremities. 07:59 Reassessment: Pt states "I took 2 full aspirins today (325mg x 2) and I took 2 plavix aa5 tabs last night and 1 plavix tab this morning". Pt's states "He saw the business transformation analyst yesterday and they put him on Plavix yesterday". Pt reports he has cardiac cath scheduled in 2 weeks. . 09:00 Reassessment: Patient is alert, oriented x 3, equal unlabored respirations, skin aa5 warm/dry/pink. 10:39 Reassessment: Patient appears in no apparent distress at this time. No changes from mb9 previously documented assessment. Patient and/or family updated on plan of care and expected duration. Pain level reassessed. Patient is alert, oriented x 3, equal unlabored respirations, skin warm/dry/pink. 11:11 Reassessment: See [facility] for further charting. mb9 Vital Signs: 07:45 BP 158 / 93; Pulse 50; Resp 16; Temp 97.8; Pulse Ox 98% on R/A; Weight 70.31 kg; Height ll1 5 ft. 9 in. ; Pain 6/10; 08:00 BP 156 / 103; Pulse 60; Resp 17; Pulse Ox 97% on R/A; db 09:30 BP 165 / 74; Pulse 55; Resp 16; Pulse Ox 98% on R/A; db 10:38 BP 161 / 93; Pulse 68; Resp 18; Pulse Ox 99% on R/A; mb9 07:45 Body Mass Index 22.89 (70.31 kg, 175.26 cm) ll1 07:45 Pain Scale: Adult ll1 ED Course: 07:38 Patient arrived in ED. im 07:39 John Vergara DO is Attending Physician. ms3 07:45 Arm band placed on Patient placed in an exam room, on a stretcher. ll1 07:45 Patient has correct armband on for positive identification. Bed in low position. Call aa5 light in reach. Side rails up X2. Client placed on continuous cardiac and pulse oximetry monitoring. NIBP monitoring applied. 07:47 Triage completed. ll1 07:53 Yoly Davis, RN is Primary Nurse. aa5 07:54 Initial lab(s) drawn, by me, sent to lab. Inserted saline lock: 20 gauge in right aa5 forearm, using aseptic technique. Blood collected. 08:04 No provider procedures requiring assistance completed. Patient maintains SpO2 aa5 saturation greater than 95% on room air. 08:08 XRAY Chest (1 view) In Process Unspecified. EDMS 08:25 Khai Martinez is Hospitalizing Provider. ms3 10:00 Report given to Marylou Negron RN. aa5 11:12 Patient admitted, IV remains in place. mb9 Administered Medications: 07:58 Not Given (Pt reports he took 325mg ASA x 2 tabs DESIGN SPECIALIST.): aspirinchewable tablet 324 mg aa5 PO once; 81 mg tablets x 4 13:24 Drug: morphine IVP or IV 4 mg IVP once over 4 mins Route: IVP; Infused Over: 4 mins; mb9 Site: right forearm; 15:37 Follow up: Response: No adverse reaction mb9 Medication: 16:12 VIS not applicable for this client. mb9 Outcome: 08:26 Decision to Hospitalize by Provider. ms3 16:12 Admitted to Tele accompanied by [facility], via wheelchair, room 413, with chart, Report mb9 called to [facility] 16:12 Condition: stable 16:12 Patient left the ED. mb9 Signatures: Dispatcher [employer] EDMS Yoly Davis, RN RN aa5 Sonal Meneses RN RN ll1 John Vergara, DO ms3 Zenaida Paredes RN RN Marylou Castillo RN RN mb9 Marsha Dudley
--- NOTE | 2023-10-08 08:27 | EDPHYS ---
Physician Documentation [facility] Name: Tay Case Age: 73 yrs Sex: Male : 1950 Arrival Date: 10/08/2023 Time: 07:35 Bed 4 Private MD: ED Physician John Vergara HPI: 10/08 08:18 This 73 yrs old Male presents to ER via Ambulatory with complaints of Chest Pain, Arm ms3 Pain. 08:18 73-year-old male with past medical history of coronary artery disease, hypertension, ms3 pulmonary fibrosis, diabetes, hyperlipidemia, hypertension presents to the emergency department for chest pain that began yesterday. Patient states yesterday his pain was intermittent and overnight the pain became more constant. Patient states he saw cardiology yesterday and a cath was scheduled from 2 weeks from now. Patient states the pain radiates down his left arm and is moderate. Patient denies any alleviating or inciting factors. Historical: - Allergies: 07:45 No Known Allergies; ll1 - Home Meds: 08:08 clopidogrel 75 mg oral tablet daily [Active]; pantoprazole 40 mg oral tablet, delayed aa5 release (enteric coated) once [Active]; alfuzosin 10 mg oral Tablet, Extended Release 24 hr once [Active]; metformin 500 mg Oral tablet 2 times per day [Active]; ranolazine 500 mg oral Tablet, Extended Release 12 hr 2 times per day [Active]; Farxiga 5 mg oral tablet [Active]; atorvastatin 40 mg oral tablet [Active]; fluvoxamine 50 mg oral tablet 2 times per day [Active]; - PMHx: 07:45 coronary atherosclerosis; Hypertensive disorder; pulmonary fibrosis; ll1 - PSHx: 07:45 6 heart stents; ll1 - Immunization history:: Adult Immunizations up to date. - Social history:: Smoking status: Patient denies any tobacco usage or history of. ROS: 08:18 Constitutional: Negative for fever, and chills. Respiratory: Negative for shortness of ms3 breath, cough, wheezing, and pleuritic chest pain, 08:18 Abdomen/GI: Negative for abdominal pain, nausea, vomiting, diarrhea, and constipation, MS/Extremity: Negative for injury and deformity, Skin: Negative for injury, rash, and discoloration, 08:18 Cardiovascular: Positive for chest pain, 08:18 All other systems are negative, Exam: 08:18 Constitutional: This is a well developed, well nourished patient who is awake, alert, ms3 and in no acute distress. Head/Face: Normocephalic, atraumatic. Neck: Trachea midline, no cervical lymphadenopathy. Supple, full range of motion without nuchal rigidity, or vertebral point tenderness. No Meningismus. Chest/axilla: Normal chest wall appearance and motion. Nontender with no deformity. Respiratory: Lungs have equal breath sounds bilaterally, clear to auscultation and percussion. No rales, rhonchi or wheezes noted. No increased work of breathing, no retractions or nasal flaring. Abdomen/GI: Soft, non-tender, with normal bowel sounds. No distension or tympany. No guarding or rebound. No evidence of tenderness throughout. Skin: Warm, dry with normal turgor. Normal color with no rashes, no lesions, and no evidence of cellulitis. MS/ Extremity: Pulses equal, no cyanosis. Neurovascular intact. Full, normal range of motion. 08:18 Cardiovascular: Rate: bradycardic, Rhythm: irregularly irregular, Pulses: no pulse deficits are appreciated, Heart sounds: normal, normal S1and S2, 08:18 ECG was reviewed by the Attending Physician. Vital Signs: 07:45 BP 158 / 93; Pulse 50; Resp 16; Temp 97.8; Pulse Ox 98% on R/A; Weight 70.31 kg; Height ll1 5 ft. 9 in. ; Pain 6/10; 08:00 BP 156 / 103; Pulse 60; Resp 17; Pulse Ox 97% on R/A; db 09:30 BP 165 / 74; Pulse 55; Resp 16; Pulse Ox 98% on R/A; db 10:38 BP 161 / 93; Pulse 68; Resp 18; Pulse Ox 99% on R/A; mb9 07:45 Body Mass Index 22.89 (70.31 kg, 175.26 cm) ll1 07:45 Pain Scale: Adult ll1 MDM: 08:03 Patient medically screened. ms3 08:21 Differential diagnosis: abnormal EKG, acute myocardial infarction, coronary artery ms3 disease. 08:25 HEART Score: History: Moderately Suspicious (1), ECG: Normal (0), Age: > or = 65 years ms3 (2), Risk Factors: > or = 3 Risk factors for atherosclerotic disease (2), [Hypercholesterolemia] [Hypertension] [DM] Troponin: < or = 1 x Normal Limit (0), Total Score = 5. The patient was not given aspirin in the Emergency Department. Patient reports taking aspirin within the past 24 hours. Data reviewed: vital signs, nurses notes, lab test result(s), EKG, radiologic studies, plain films, and as a result, I will admit patient. Consideration of Admission/Observation Patient was admitted/placed on observation. Management of patient was discussed with the following: Hospitalist: Dr Martinez. Obstetrics Gynecology Physician: Dr Oliva. Historians other than the Patient: Spouse/Significant Other: Patient's . Care significantly affected by the following chronic conditions: Diabetes, Hypertension, CAD. Counseling: I had a detailed discussion with the patient and/or guardian regarding the historical points, exam findings, and any diagnostic results supporting the discharge/admit diagnosis, lab results, radiology results, the need for further work-up and treatment in the hospital. ED course: Discussed case with Dr. Oliva and he would like patient admitted for catheterization. Discussed labs, chest x-ray, EKG with patient and his . Discussed Dr. Oliva's recommendation for admission with them and they understand and agree with plan.. 10/08 07:53 Order name: Basic Metabolic Panel; Complete Time: 08:22 aa5 10/08 07:53 Order name: CBC with Diff; Complete Time: 08:22 aa 10/08 07:53 Order name: Troponin HS; Complete Time: 08:22 aa 10/08 09:30 Order name: Basic Metabolic Panel [facility] 10/08 09:30 Order name: CBC with Automated Diff [facility] 10/08 09:30 Order name: Troponin High Sensitivity [facility] 10/08 09:30 Order name: Troponin High Sensitivity [facility] 10/08 09:30 Order name: Troponin High Sensitivity [facility] 10/08 11:49 Order name: Glucose, Ancillary Testing; Complete Time: 14:39 [facility] 10/08 07:53 Order name: XRAY Chest (1 view); Complete Time: 08:22 aa5 10/08 07:53 Order name: EKG; Complete Time: 07:54 aa 10/08 09:30 Order name: CONS Physician Consult [facility] 10/08 07:53 Order name: Cardiac monitoring; Complete Time: 07:53 10/08 07:53 Order name: EKG - Nurse/Tech; Complete Time: 07:53 10/08 07:53 Order name: IV Saline Lock; Complete Time: 07:53 10/08 07:53 Order name: Labs collected and sent; Complete Time: 07:53 10/08 07:53 Order name: O2 Per Protocol; Complete Time: :54 10/08 07:53 Order name: O2 Sat Monitoring; Complete Time: :54 EC:18 Rate is 56 beats/min. Rhythm is irregular. QRS [place] is Normal. RI interval is normal. ms3 QRS interval is normal. Clinical impression: Sinus bradycardia. Interpreted by me. Reviewed by me. Administered Medications: 07:58 Not Given (Pt reports he took 325mg ASA x 2 tabs FITNESS SERVICES MANAGER.): aspirinchewable tablet 324 mg aa5 PO once; 81 mg tablets x 4 13:24 Drug: morphine IVP or IV 4 mg IVP once over 4 mins Route: IVP; Infused Over: 4 mins; mb9 Site: right forearm; 15:37 Follow up: Response: No adverse reaction mb9 Disposition Summary: 10/08/23 08:26 Hospitalization Ordered Notes: Hospitalization Status: Observation ms3 Provider: Khai Martinez ms3 Condition: Stable ms3 Problem: new ms3 Symptoms: are unchanged ms3 Bed/Room Type: Standard ms3 Location: Telemetry/MedSurg (observation)(10/08/23 15:33) bd Room Assignment: [facility](10/08/23 15:33) bd Diagnosis - Chest pain, unspecified ms3 - Atherosclerotic heart disease of [place] coronary artery ms3 - Essential (primary) hypertension ms3 Forms: - Medication Reconciliation Form ms3 - SBAR form ms3 - Leadership Thank You Letter ms3 Signatures: Dispatcher [employer] Carmen Benítez Audri RN RN aa5 Sonal Meneses RN RN ll1 John Vergara DO DO ms3 Esthela Pena, RN RN kb3 Marylou Mccartney RN RN mb9 Corrections: (The following items were deleted from the chart) 11:57 08:26 Telemetry/MedSurg (observation) ms3 kb3 11:57 08:26 ms3 kb3 15:33 11:57 [facility] ER HOLD kb3 bd 15:33 11:57 ERHOLD- kb3 bd
[2023-10-08] MEDS ORDERED: NITROGLYCERIN 0.4 MG/TAB SL PRN (09:23)
--- NOTE | 2023-10-08 09:35 | P.HP ---
Certification for Inpatient Patient admitted to: Observation With expected LOS: <2 Midnights Practitioner: I am a practitioner with admitting privileges, knowledge of patient current condition, hospital course, and medical plan of care. Services: Services provided to patient in accordance with Admission requirements found in Title 42 Section 412.3 of the Code of Federal Regulations Patient History Date of Service: 10/08/23 Reason for admission: Chest pain r/o RI History of Present Illness: Francisco Virk is a 73-year-old male with past medical history of coronary artery disease (stents x 6), hypertensive disorder (not treated) , pulmonary fibrosis, who presents to the ED with complaints of left-sided chest radiating down the left arm feeling the same as it did when he needed his initial stents. Tay reports going to Dr. Oliva's office yesterday and after he left he started having chest pain which has come more consistent throughout the night and decided to come to the ED today. He has a history of coronary artery disease with 6 stents, the most recent one placed April 2022 at [facility]. He reports being scheduled for a coronary angiogram in 2 weeks. Of note, he was recently started on Plavix, took 2 doses yesterday and most recent dose was this morning at 5 AM. He presented with elevated blood pressure 158/93 and reports not being treated for hypertension, has recently been experiencing hypotension. Initial vitals BP 158 / 93; Pulse 50; Resp 16; Temp 97.8; Pulse Ox 98% on R/A; Lab evaluation troponin 13.2, sodium 137, potassium 4.3, BUN/creatinine 21/1.2 with 2 GFR 63, serum glucose 126. EKG Rate is 56 beats/min. Rhythm is irregular. QRS Tyler is Normal. MT interval is normal. QRS interval is normal. Clinical impression: Sinus bradycardia Chest x-ray reports "Vyty-de-joglgybn bilateral subpleural interstitial opacities are unchanged probably pulmonary fibrosis. A small lung nodules unchanged. The heart is mildly enlarged". Echocardiogram from 09/22/2023 reports " EF of 51%, mildly dilated right atrium, mild to moderate dilated left atrium, trace tricuspid regurgitation, trace mitral regurgitation". Tay will be admitted to hospitalist service for further evaluation and treatment of chest pain rule out RI, Dr. Oliva has been consulted and requested admission. Allergies No Known Allergies Allergy (Verified 09/21/23 00:13) Home Medications: Albuterol Sulfate [Proair Digihaler] 90 mcg IH PRN 09/21/23 Alfuzosin HCl [Alfuzosin HCl ER] 10 mg PO DAILY 09/21/23 Aspirin [Aspirin EC] 81 mg PO DAILY 09/21/23 Atorvastatin Calcium [Lipitor] 40 mg PO DAILY 09/21/23 Budesonide/Glycopyr/Formoterol [Breztri Aerosphere Inhaler] 160 mcg IH PRN 09/21/23 Dapagliflozin Propanediol [Farxiga] 5 mg PO DAILY 09/21/23 Fluvoxamine Maleate 50 mg PO BID 09/21/23 Insulin Glargine/Lixisenatide [Soliqua 100 Unit-33 Mcg/ml Pen] 20 units SQ DAILY 09/21/23 Metformin HCl [Glucophage*] 500 mg PO BID 09/21/23 Pantoprazole Sodium [Protonix] 40 mg PO DAILY 09/21/23 Ranolazine [Ranolazine ER] 500 mg PO BID 09/21/23 - Past Medical/Surgical History Diabetic: Yes -: CAD with stent -: Pulmonary fibrosis -: Pulmonary hypertension -: Cardiac catheterization - Family History Father -: GI disease, Cancer Notes: esophageal ca, reflux Mother -: Heart disease - Social History Alcohol use: Yes CD- Drugs: No Caffeine use: Yes Review of Systems General: Unremarkable Eyes: Unremarkable ENT: As per HPI Respiratory: Cough Cardiovascular: Chest Pain (left sided radiating to left arm) Gastrointestinal: Unremarkable Genitourinary: Unremarkable Musculoskeletal: Other (left arm pain) Integumentary: Unremarkable Neurological: Unremarkable Lymphatics: Unremarkable Physical Examination - Physical Exam General: Alert, In no apparent distress, Oriented x3 HEENT: Atraumatic, Normocephalic, PERRLA Neck: Supple, 2+ carotid pulse no bruit, JVD not distended Respiratory: Clear to auscultation bilaterally, Normal air movement Cardiovascular: No edema, Normal pulses, Regular rate/rhythm, Normal S1 S2 Capillary refill: <2 Seconds Gastrointestinal: Normal bowel sounds, Soft and benign Musculoskeletal: No clubbing, No swelling, No contractures Integumentary: No rashes, No breakdown, No significant lesion Neurological: Normal speech, Normal strength at 5/5 x4 extr, Normal tone - Studies Laboratory Data (last 24 hrs) 11/29/23 11/29/23 07:54 07:54 WBC 6.90 Hgb 12.9 L Hct 39.7 Plt Count 218 Sodium 137 Potassium 4.3 BUN 21 H Creatinine 1.22 Glucose 126 H Assessment and Plan - Plan Assessment and plan Chest pain rule out RI CAD stents x6 Left chest pain radiating down left arm Dr. Oliva consulted and requested admission Troponin 13.2, serial troponin pending Aspirin, statin, restart plavix when appropriate Nitroglycerin as needed Echo performed 09/22/2023 EKG Rate is 56 beats/min. Rhythm is irregular. QRS Tyler is Normal. MT interval is normal. QRS interval is normal. Clinical impression: Sinus bradycardia. Pulmonary fibrosis Requiring 3 L nasal cannula at night Declined for lung transplant due to his current heart condition Follow-up as outpatient Hypothyroidism GERD Continue home medication DVT PPx SCDs for now Full code Length of stay 2 to 3 days - Advance Directives Does patient have a Living Will: No Does patient have a Durable POA for Healthcare: No Time Spent Managing Pts Care (In Minutes): 55
[2023-10-08 11:08] VITALS: BMI 22.8
[2023-10-08] MEDS: INSULIN REGULAR (HUMAN) 100 UNIT/ML SQ SCH ×3 (11:30→20:31)
[2023-10-08] MEDS ORDERED: MORPHINE 2 MG/ML SYR IV PRN (13:25)
[2023-10-08] MEDS ORDERED: MORPHINE 4 MG/ML SYR ONE (13:35)
[2023-10-08 22:02] LABS: Absolute Lymphocytes (CBC) 0.9 K/uL (0.7-4.9); Lymphocytes % 11.6 % (15.3-44.8); MCV 89.9 fL (80-100); MPV 8.5 fL (7.6-11.3); Platelets 202 thou/uL (152-406)
[2023-10-09] MEDS: INSULIN REGULAR (HUMAN) 100 UNIT/ML SQ SCH ×4 (07:30→20:21)
[2023-10-09] MEDS ORDERED: ASPIRIN EC 81 MG TAB PO SCH (09:00)
[2023-10-09] MEDS ORDERED: NA CHLORIDE 0.9% 500 ML ONE (13:20)
--- NOTE | 2023-10-09 15:17 | EKG ---
Test Date: 2023-10-08 Test Time: 07:45:18 Talent Acquisition Assistant: KODY MEASUREMENT RESULTS: Intervals: Rate: 56 HI: 168 QRSD: 98 QT: 494 QTc: 476 Steens: P: 5 HI: 168 QRS: 24 T: 29 INTERPRETIVE STATEMENTS: Sinus bradycardia with marked sinus arrhythmia Otherwise normal ECG Compared to ECG 09/20/2023 19:08:23 Sinus rhythm no longer present Electronically Signed On 10-09-23 15:12:33 MANAGER ORANGE by Ramsey Oliva
[2023-10-09] MEDS ORDERED: ATROPINE SULF 1 MG/10 ML SYR IV ONE (15:32)
[2023-10-09] MEDS ORDERED: FENTANYL CITR 100 MCG/2 ML ONE (15:32)
[2023-10-09] MEDS ORDERED: HEPARIN 5000 UNIT/ML 1 ML VIAL ONE (15:32)
[2023-10-09] MEDS ORDERED: MIDAZOLAM HCL 2 MG/2 ML INJ ONE (15:32)
[2023-10-09] MEDS ORDERED: VERAPAMIL HCL 10 MG/4 ML VIAL IV ONE (15:32)
[2023-10-09] MEDS ORDERED: TICAGRELOR 90 MG TABLET PO ONE (15:33)
[2023-10-09] MEDS ORDERED: CLOPIDOGREL 75 MG TABLET ONE (15:33)
[2023-10-09] MEDS ORDERED: ASPIRIN 325 MG TAB ONE (15:33)
[2023-10-09] MEDS ORDERED: HEPARIN 10,000 UNIT/10 ML VIAL IV ONE (15:33)
[2023-10-09] MEDS ORDERED: LIDOCAINE 1% 20 ML MDV ONE (15:34)
--- NOTE | 2023-10-09 17:06 | P.PN ---
Date of Service: 10/09/23 Subjective Awake and ambulating independently in the room Heart cath planned for today NPO ROS: 10 point ROS as noted above, otherwise negative Physical Exam General: Alert, In no apparent distress, Oriented x3 HEENT: Atraumatic, Normocephalic, PERRLA Neck: Supple, 2+ carotid pulse no bruit, JVD not distended Respiratory: Clear to auscultation bilaterally, Normal air movement Cardiovascular: No edema, Normal pulses, Regular rate/rhythm, Normal S1 S2 Capillary refill: <2 Seconds Gastrointestinal: Normal bowel sounds, Soft and benign Musculoskeletal: No clubbing, No swelling, No contractures Integumentary: No rashes, No breakdown, No significant lesion Neurological: Normal speech, Normal strength at 5/5 x4 extr, Normal tone Vitals reviewed Problem list Chest pain rule out KS CAD stents x6 Left chest pain radiating down left arm Pulmonary fibrosis Assessment and plan Chest pain rule out [place] CAD stents x6 Left chest pain radiating down left arm Dr. Oliva consulted and requested admission, likely Left heart cath today Troponin 13.2/11.6/13.9 Aspirin, statin, restart plavix when appropriate Nitroglycerin as needed Echo performed 09/22/2023 EKG Rate is 56 beats/min. Rhythm is irregular. QRS Patton is Normal. LA interval is normal. QRS interval is normal. Clinical impression: Sinus bradycardia. Pulmonary fibrosis Requiring 3 L nasal cannula at night Declined for lung transplant due to his current heart condition Follow-up as outpatient Hypothyroidism GERD Continue home medication DVT PPx SCDs for now Full code Length of stay 2 to 3 days
[2023-10-09 19:58] VITALS: BP 129/77; TEMP 97.6
--- NOTE | 2023-10-09 20:12 | OP ---
Date of Procedure: 10/09/2023 Surgeon: JOSUÉ SALINAS Procedures Performed: 1.Selective coronary angiogram. 2.Left heart catheterization. 3.Failed attempted PCI of severe mid PDA stenosis on the right. Indication: Unstable angina. Access: Right radial artery 6-Belarusian closed with TR band. Complications: None. Bleeding: Less than 20 mL. Anesthesia: Total sedation time was 1 hour. Description Of Procedure: After risks, benefits, alternatives were explained, patient agreed to proc edure and signed informed consent. The patient was brought into cardiac catheterization laboratory, prepped and draped in the usual sterile fashion. Then, I accessed right radial artery using [employer] Teach c micropuncture kit, placed 6-Belarusian Slender sheath, took 5-Belarusian Ames 4.0 catheter into aortic george t, engaged the left main, took standard views and then in the RCA, took standard views and the cathet er was pushed over the wire into the LV, measured the LVEDP. Pullback did not record any gradient. Then I gave systemic heparin to assure ACT level above 250 and then took a 6-Belarusian JR4 guide into th e aortic root, engaged the RCA, took a Runthrough wire into the distal RCA, placed it in the PDA, pas sing the area of stenosis and I tried to pass the balloon; however, they will not pass the mid RCA. Apparently, there is a stent with in-stent restenoses there. Tried the GuideLiner and tried a rosalee wire and could not push the balloon. After multiple attempts, I decided to abort the procedure and p dalila for atherectomy of the mid RCA and PCI and then the PDA and then the LAD, to be done at [facility]. I removed all the equipments. Final angiogram was satisfactory and then removed the sheath and p laced TR band with good hemostasis. Findings: 1.Left main; large and normal. 2.LAD; large vessel proximal with luminal irregularities. Mid to distal, there is a stent that is w idely patent until the mid to distal portion of it, there was significant 70% to 80% in-stent resteno sis. Diagonal branches with luminal irregularities. 3.Left circumflex. It is with luminal irregularity proximally and the OM1 branch is large. It has widely patent stent. 4.RCA; very large and dominant, has a stent in the proximal to mid segment with 50% in-stent resteno sis. Distal RCA before the bifurcation 50% stenosed and the right PDA has mid 90% stenosis. 5.LVEDP is borderline at 12 mmHg. Conclusion: Severe mid to distal LAD in-stent restenosis and right PDA stenosis. Failed PCI of the PDA due to heavy calcification and tortuosity of the RCA. Plan: Staged PCI of the RCA in [place] with atherectomy as well as the LAD. SR/MODL Voice ID: [id number] Report ID: [id number]
--- NOTE | 2023-10-09 20:18 | P.DS ---
Admission Date: 10/08/23 Discharge Date: 10/09/23 Disposition: ROUTINE DISCHARGE Discharge Condition: GOOD Reason for Admission: Chest pain r/o SD Vital Signs/Physical Exam: Temp Pulse Resp BP Pulse Ox 97.6 F 62 16 129/77 91 10/09/23 19:57 10/09/23 19:57 10/09/23 19:57 10/09/23 19:57 10/09/23 19:57 Laboratory Data at Discharge: WBC 7.80 thou/uL (4.3-10.9) 10/08/23 21:44 Hgb 11.8 g/dL (13.6-17.9) L D 10/08/23 21:44 Hct 35.0 % (39.6-49.0) L 10/08/23 21:44 Plt Count 202 thou/uL (152-406) 10/08/23 21:44 Sodium 138 mEq/L (136-145) 10/08/23 21:44 Potassium 4.0 mEq/L (3.5-5.1) 10/08/23 21:44 BUN 21 mg/dL (7-18) H 10/08/23 21:44 Creatinine 1.26 mg/dL (0.70-1.30) 10/08/23 21:44 Glucose 179 mg/dL (74-106) H 10/08/23 21:44 Home Medications: Albuterol Sulfate [Proair Digihaler] 90 mcg IH PRN 09/21/23 Alfuzosin HCl [Alfuzosin HCl ER] 10 mg PO DAILY 09/21/23 Aspirin [Aspirin EC] 81 mg PO DAILY 09/21/23 Atorvastatin Calcium [Lipitor] 40 mg PO DAILY 09/21/23 Budesonide/Glycopyr/Formoterol [Breztri Aerosphere Inhaler] 160 mcg IH PRN 09/21/23 Dapagliflozin Propanediol [Farxiga] 5 mg PO DAILY 09/21/23 Fluvoxamine Maleate 50 mg PO BID 09/21/23 Insulin Glargine/Lixisenatide [Soliqua 100 Unit-33 Mcg/ml Pen] 20 units SQ DAILY 09/21/23 Metformin HCl [Glucophage*] 500 mg PO BID 09/21/23 Pantoprazole Sodium [Protonix] 40 mg PO DAILY 09/21/23 Ranolazine [Ranolazine ER] 500 mg PO BID 09/21/23 Clopidogrel Bisulfate [Plavix] 75 mg PO DAILY 10/08/23 Followup: Orville Peter MD [Primary Care Provider] -
[2023-10-09 20:25] VITALS: O2SAT 91
[2023-10-10] MEDS ORDERED: CLOPIDOGREL 75 MG TABLET PO SCH (09:00)
== END 2023-10-09 20:45 | disposition home or self-care (01) ==
LOC: ER 07:35 → ERHOLD 10:00 → 4TH 16:08
PROVIDERS: ADMIT Internal Medicine; ATTEND Internal Medicine
PROC: 02713ZZ Dilation of Coronary Artery, Two Arteries, Percutaneous Approach (ICD-10-PCS; principal; 2023-10-08)
PROC: 4A023N7 Measurement of Cardiac Sampling and Pressure, Left Heart, Percutaneous Approach (ICD-10-PCS; 2023-10-08)
PROC: B2111ZZ Fluoroscopy of Multiple Coronary Arteries using Low Osmolar Contrast (ICD-10-PCS; 2023-10-08)
DX: I25.110 Atherosclerotic heart disease of native coronary artery with unstable angina pectoris (principal); T82.855A Stenosis of coronary artery stent, initial encounter; I10 Essential (primary) hypertension; J84.10 Pulmonary fibrosis, unspecified; E03.9 Hypothyroidism, unspecified; K21.9 Gastro-esophageal reflux disease without esophagitis; Z79.899 Other long term (current) drug therapy; Z85.01 Personal history of malignant neoplasm of esophagus; Z82.49 Family history of ischemic heart disease and other diseases of the circulatory system
CPT/HCPCS: 93005; 85025 ×2; 80048 ×2; 36415 ×2; 82947 ×6; 85347; 84484 ×3; 71045; 92920; 93458; 76937; 96374; 99285; C1893; Q9966; C1725; C1887; J1644; J2001; J2250; J3010; G0378 ×5; J7040; 99152; 99153; J0461

== ENCOUNTER 2024-10-17 11:32 | Observation (INO) | payer OTHER ==
--- NOTE | 2024-10-17 13:05 | RAD REPORT ---
Extremity Venous Uni Ltd CLINICAL INDICATION: Male, 74 years old.Pain;Swelling TECHNIQUE: Complete duplex sonography of the lower extremity veins was performed of the affected limb . The examination included compression for vein patency, color Doppler imaging and flow augmentation in response to distal compression of the distal external iliac, common femoral, femoral, popliteal, peroneal, tibial and great saphenous veins. [id number]. COMPARISON: No prior exams FINDINGS: Duplex sonography imaging demonstrates all deep veins examined to be fully compressible with spontane ous, phasic and augmented flow in the affected limb. IMPRESSION: No evidence of deep venous thrombosis in the left lower extremity.
--- NOTE | 2024-10-17 13:31 | RAD REPORT ---
EXAM:Tib Fib Left 3 views HISTORY: Pain;Swelling COMPARISON: None IMPRESSION: No fracture of the tibia or fibula. No focal soft tissue abnormality.
[2024-10-17 13:43] LABS: Absolute Eosinophils 0.1 K/uL (0-0.5); Absolute Lymphocytes (CBC) 0.4 K/uL (0.7-4.9); Absolute Monocytes 0.3 K/uL (0.1-1.3); Basophils % 0.3 % (0-1.3); Eosinophils % 0.6 % (0-4.4); Hematocrit 32.4 % (39.6-49.0); Hemoglobin 10.2 g/dL (13.6-17.9); MCH 28.5 pg (27.0-35.0); MCHC 31.5 g/dL (32.0-36.0); MCV 90.3 fL (80-100); MPV 8.6 fL (7.6-11.3); Monocytes % 2.2 % (3.3-12.3); Neutrophils % 93.9 % (41.7-73.7); Platelets 219 thou/uL (152-406); RBC Red Blood Cell Count 3.59 M/uL (4.33-5.43)
[2024-10-17 13:46] LABS: PT Prothrombin Time 10.7 SECONDS (9.4-12.5); PTT, Activated Partial Thromb 29.2 SECONDS (24.3-36.9); Protime INR 0.95
[2024-10-17 13:54] LABS: AST/SGOT 13 U/L (15-37); Albumin 3.4 g/dL (3.4-5.0); Alkaline Phosphatase 95 U/L (45-117); Anion Gap 11.3 mEq/L (5.0-15.0); BUN Blood Urea Nitrogen 24 mg/dL (7-18); Bicarbonate 26 mEq/L (21-32); Bilirubin Total 0.5 mg/dL (0.2-1.0); Globulin 3.4 g/dL (2.3-3.5); Glomerular Filtration Rate 54 ml/min (=/>90); Glucose Level 196 mg/dL (74-106); Potassium 4.3 mEq/L (3.5-5.1); Protein, Total 6.8 g/dL (6.4-8.2); Sodium Level 138 mEq/L (136-145)
[2024-10-17 13:55] LABS: ALT/SGPT < 14 U/L (16-61)
--- NOTE | 2024-10-17 14:13 | EDPHYS ---
[facility] Name: Tay Case Age: 74 yrs Sex: Male : 1950 Arrival Date: 10/17/2024 Time: 11:32 Bed 12 Private MD: ED Physician Clyde Macias HPI: 10/17 12:41 This 74 yrs old Male presents to ER via Ambulatory with complaints of Leg Swelling. sp3 12:41 74-year-old male with history of CAD, pulmonary fibrosis, hypertension, atrial sp3 fibrillation currently on Plavix and aspirin presents with left lower extremity swelling and leg pain and ecchymoses. Patient denies any direct trauma and states that the symptoms have been occurring for approximately 1 week with swelling getting progressively worse. Swelling is isolated to the lateral midshaft tib-fib region extending posterior into the calf. No history of trauma or compartment syndrome or any other pathology. No swelling of the foot noted. No prolonged immobilization. Patient denies fever, headache, chest pain, shortness of breath, abdominal pain, nausea, vomit, diarrhea, syncope, near syncope, travel history or any other signs or symptoms on ROS at this time.. Historical: - Allergies: 12:07 No Known Allergies; hb - PMHx: 12:07 coronary atherosclerosis; pulmonary fibrosis; Hypertensive disorder; Atrial hb fibrillation; - PSHx: 12:07 6 heart stents; hb - Immunization history:: Adult Immunizations up to date. - Infectious Disease History:: Denies. - Social history:: Smoking status: Patient denies any tobacco usage or history of. ROS: 12:43 Constitutional: Negative for fever, chills, and weight loss, Eyes: Negative for injury, sp3 pain, redness, and discharge, Neck: Negative for injury, pain, and swelling, Cardiovascular: Negative for chest pain, palpitations, and edema, Respiratory: Negative for shortness of breath, cough, wheezing, and pleuritic chest pain, Abdomen/GI: Negative for abdominal pain, nausea, vomiting, diarrhea, and constipation, Back: Negative for injury and pain, Neuro: Negative for headache, weakness, numbness, tingling, and seizure, Psych: Negative for depression, anxiety, suicide ideation, homicidal ideation, and hallucinations, Allergy/Immunology: Negative for hives, rash, and allergies, Endocrine: Negative for neck swelling, polydipsia, polyuria, polyphagia, and marked weight changes, 12:43 All other systems are negative, Exam: 12:43 Constitutional: This is a well developed, well nourished patient who is awake, alert, sp3 and in no acute distress. Head/Face: Normocephalic, atraumatic. Eyes: Pupils equal round and reactive to light, extra-ocular motions intact. Lids and lashes normal. Conjunctiva and sclera are non-icteric and not injected. Cornea within normal limits. Periorbital areas with no swelling, redness, or edema. Neck: Trachea midline, no thyromegaly or masses palpated, and no cervical lymphadenopathy. Supple, full range of motion without nuchal rigidity, or vertebral point tenderness. No Meningismus. Chest/axilla: Normal chest wall appearance and motion. Nontender with no deformity. No lesions are appreciated. Cardiovascular: Regular rate and rhythm with a normal S1 and S2. No gallops, murmurs, or rubs. Normal PMI, no JVD. No pulse deficits. Respiratory: Lungs have equal breath sounds bilaterally, clear to auscultation and percussion. No rales, rhonchi or wheezes noted. No increased work of breathing, no retractions or nasal flaring. Abdomen/GI: Soft, non-tender, with normal bowel sounds. No distension or tympany. No guarding or rebound. No evidence of tenderness throughout. Back: No spinal tenderness. No costovertebral tenderness. Full range of motion. Skin: Warm, dry with normal turgor. Normal color with no rashes, no lesions, and no evidence of cellulitis. Neuro: Awake and alert, GCS 15, oriented to person, place, time, and situation. Cranial nerves II-XII grossly intact. Motor strength 5/5 in all extremities. Sensory grossly intact. Cerebellar exam normal. Normal gait. Psych: Awake, alert, with orientation to person, place and time. Behavior, mood, and affect are within normal limits. 12:43 Musculoskeletal/extremity: Significant ecchymoses and swelling noted in the left posterior calf extending laterally. Mild pain to palpation. Patient is ambulatory. Foot exam is normal. Patient does have peripheral vascular disease. Normal examined the knee and proximal.. 13:10 ECG was reviewed by the Attending Physician. EKG demonstrates atrial paced rhythm with sp3 ventricular capture at 63 bpm Vital Signs: 12:05 BP 115 / 73; Pulse 88; Resp 18; Temp 97.3; Pulse Ox 90% on 3 lpm NC; Weight 70.31 kg; hb Height 5 ft. 9 in. ; Pain 5/10; 14:55 BP 135 / 77; Pulse 62; Resp 15 S; Pulse Ox 96% on 2 lpm NC; kc6 12:05 Body Mass Index 22.89 (70.31 kg, 175.26 cm) hb 12:05 Pain Scale: Adult hb 12:05 home O2 hb MDM: 12:02 Medical Screening Exam initiated sp3 12:44 Data reviewed: vital signs, nurses notes, lab test result(s), radiologic studies. ED sp3 course: 74-year-old male with PMH above and swelling and pain of the left lower extremity. Differential diagnosis includes DVT, cellulitis, other vascular occlusion, infection, abscess, among others. Workup will include general labs, ultrasound of left lower extremity, x-ray and general supportive care. Vital signs are currently normal. Disposition pending workup and patient course.. 14:11 ED course: Lactate of 3.5. X-ray and ultrasound negative. Vital signs remain normal. We sp3 will treat with IV fluids and antibiotics and admit to inpatient team for further evaluation.. 12 12:19 Order name: Blood Culture Adult (2) sp3 10/17 12:19 Order name: CBC with Diff; Complete Time: 13:55 sp3 10/17 12:19 Order name: CMP; Complete Time: 13:55 sp3 10/17 12:19 Order name: Lactate w/ 2H reflex if indic.; Complete Time: 14:07 sp3 10/17 12:19 Order name: Protime (+inr); Complete Time: 13:55 sp3 10/17 12:19 Order name: Ptt, Activated; Complete Time: 13:55 sp3 10/17 14:05 Order name: Ghost Lactate-NO COLLECT Timer EDMS 10/17 12:20 Order name: US Extremity Venous Unilateral Ltd; Complete Time: 13:55 sp3 10/17 12:20 Order name: Tib Fib Left XRAY; Complete Time: 13:55 sp3 10/17 14:55 Order name: Lower Ext Wo Con W/ Mpr EDMS 10/17 14:57 Order name: Lower Extremity Artery Uni Ltd EDTX 10/17 12:19 Order name: EKG; Complete Time: 12:20 sp3 10/17 12:19 Order name: Cardiac monitoring; Complete Time: 13:18 sp3 10/17 12:19 Order name: EKG - Nurse/Tech; Complete Time: 13:18 sp3 10/17 12:19 Order name: IV Saline Lock - Large Bore; Complete Time: 13:29 sp3 10/17 12:19 Order name: Labs collected and sent; Complete Time: 13:29 sp3 10/17 12:19 Order name: O2 Per Protocol; Complete Time: 13:18 sp3 10/17 12:19 Order name: O2 Sat Monitoring; Complete Time: 13:18 sp3 10/17 12:19 Order name: Vital Signs; Complete Time: 12:38 sp3 Administered Medications: 14:35 Drug: Piperacillin-Tazobactam IVPB 3.375 grams IVPB once over 60 mins; (mix in NS 100 kc6 mL) Route: IVPB; Infused Over: 60 mins; Site: right forearm; 15:35 Follow up: Response: No adverse reaction; IV Status: Completed infusion; IV Intake: kc6 100ml 14:35 Drug: NS 0.9% IV 1000 ml IV at 1 bolus Per protocol; to be given as a bolus over 60 kc6 minutes Route: IV; Rate: 1 bolus; Site: right forearm; 16:04 Follow up: Response: No adverse reaction; IV Status: Infusion continued upon admission kc6 16:04 Drug: vancoMYCIN IVPB 1 grams IVPB once over 2 hrs Route: IVPB; Infused Over: 2 hrs; kc6 Site: right forearm; 16:04 Follow up: Response: No adverse reaction; IV Status: Infusion continued upon admission; kc6 IV Intake: 250ml Disposition Summary: 10/17/24 14:13 Hospitalization Ordered Notes: Hospitalization Status: Inpatient Admission sp3 Provider: Sathish Dominguez sp3 Location: Telemetry/[facility] (Inpatient) sp3 Condition: Stable sp3 Problem: an acute exacerbation sp3 Symptoms: are unchanged sp3 Bed/Room Type: Standard sp3 Room Assignment: 222(10/17/24 14:57) eb Diagnosis - Cellulitis of other parts of limb sp3 Forms: - Medication Reconciliation Form sp3 - SBAR form sp3 - Leadership Thank You Letter sp3 Signatures: Dispatcher [employer] EDMS Hair Donohue, DAIRY CLERK-C DAIRY CLERK-Cla1 Ela Rahman, RN RN Lia Prather Setul, MD MD sp3 Niesha Hurst, RN RN kc6 Corrections: (The following items were deleted from the chart) 12:20 12:20 BLOOD CULTURE*+BA.LAB.BRZ ordered. EDMS EDMS 12:20 12:20 CBC+H.LAB.BRZ ordered. EDMS EDMS 12:20 12:20 COMPREHENSIVE METABOLIC PANEL+C.LAB.BRZ ordered. EDMS EDMS 12:20 12:20 LACTATE+C.LAB.BRZ ordered. EDMS EDMS 12:20 12:20 PROTIME (+INR)+COAG.LAB.BRZ ordered. EDMS EDMS 12:20 12:20 PTT, ACTIVATED+COAG.LAB.BRZ ordered. EDMS EDMS 14:55 14:52 CT LEFT TIBFIB WO COTNRAST ordered. EDMS EDMS 14:57 14:52 Lower Extremity Arterial Bilat ordered. EDMS EDMS 14:57 14:13 sp3 eb
--- NOTE | 2024-10-17 14:13 | ER ---
Nurse's Notes [facility] Name: Tay Case Age: 74 yrs Sex: Male : 1950 Arrival Date: 10/17/2024 Time: 11:32 Bed 12 Private MD: Diagnosis: Cellulitis of other parts of limb Presentation: 10/17 12:05 Chief complaint: LLE bruising and swelling x 6 days. Denies injury. Coronavirus screen: hb At this time, the client does not indicate any symptoms associated with coronavirus-19. Ebola Screen: No symptoms or risks identified at this time. Initial Sepsis Screen: Does the patient meet any 2 criteria? No. Patient's initial sepsis screen is negative. Does the patient have a suspected source of infection? No. Patient's initial sepsis screen is negative. Risk Assessment: Do you want to hurt yourself or someone else? Patient reports no desire to harm self or others. Onset of symptoms was October 12, 2024. 12:05 Method Of Arrival: Ambulatory hb 12:05 Acuity: BILLY 3 hb Historical: - Allergies: 12:07 No Known Allergies; hb - PMHx: 12:07 coronary atherosclerosis; pulmonary fibrosis; Hypertensive disorder; Atrial hb fibrillation; - PSHx: 12:07 6 heart stents; hb - Immunization history:: Adult Immunizations up to date. - Infectious Disease History:: Denies. - Social history:: Smoking status: Patient denies any tobacco usage or history of. Screenin:21 [facility] ED Fall Risk Assessment (Adult) History of falling in the last 3 months, kc6 including since admission No falls in past 3 months (0 pts) Confusion or Disorientation No (0 pts) Intoxicated or Sedated No (0 pts) Impaired Gait No (0 pts) Mobility Assist Device Used No (0 pt) Altered Elimination No (0 pt) Score/Fall Risk Level 0 - 2 = Low Risk Oriented to surroundings, Maintained a safe environment. Abuse screen: Denies threats or abuse. Denies injuries from another. Nutritional screening: No deficits noted. Tuberculosis screening: No symptoms or risk factors identified. Assessment: 13:21 General: Appears in no apparent distress. comfortable, well groomed, well developed, kc6 Behavior is calm, cooperative, appropriate for age. Pain: Complains of pain in left leg Quality of pain is described as aching, dull. Neuro: Level of Consciousness is awake, alert, obeys commands, Oriented to person, place, time, situation, Appropriate for age. Cardiovascular: Capillary refill < 3 seconds. Respiratory: Airway is patent Trachea midline Respiratory effort is even, unlabored, Respiratory pattern is regular, symmetrical. GI: No signs and/or symptoms were reported involving the gastrointestinal system. : No signs and/or symptoms were reported regarding the genitourinary system. EENT: No signs and/or symptoms were reported regarding the EENT system. Derm: Skin is healthy with good turgor, Skin is dry, Skin is normal, Skin temperature is warm Bruising that is dark purple, yellow, on left leg. Musculoskeletal: Circulation, motion, and sensation intact. Range of motion: intact in all extremities, Swelling present in lateral aspect of left calf. 14:54 Reassessment: Patient appears in no apparent distress at this time. No changes from kc6 previously documented assessment. Patient and/or family updated on plan of care and expected duration. Pain level reassessed. Patient is alert, oriented x 3, equal unlabored respirations, skin warm/dry/pink. 16:04 Reassessment: Patient appears in no apparent distress at this time. No changes from kc6 previously documented assessment. Patient and/or family updated on plan of care and expected duration. Pain level reassessed. Patient is alert, oriented x 3, equal unlabored respirations, skin warm/dry/pink. Vital Signs: 12:05 BP 115 / 73; Pulse 88; Resp 18; Temp 97.3; Pulse Ox 90% on 3 lpm NC; Weight 70.31 kg; hb Height 5 ft. 9 in. ; Pain 5/10; 14:55 BP 135 / 77; Pulse 62; Resp 15 S; Pulse Ox 96% on 2 lpm NC; kc6 12:05 Body Mass Index 22.89 (70.31 kg, 175.26 cm) hb 12:05 Pain Scale: Adult hb 12:05 home O2 hb ED Course: 11:37 Patient arrived in ED. mg5 11:38 Clyde Macias MD is Attending Physician. sp3 12:07 Triage completed. hb 12:08 Arm band placed on. hb 12:59 US Extremity Venous Unilateral Ltd In Process Unspecified. EDMS 13:17 Hurst, Niesha, RN is Primary Nurse. kc6 13:20 Patient has correct armband on for positive identification. Bed in low position. Call kc6 light in reach. Side rails up X2. Adult w/ patient. court recording monitor on. Pulse ox on. NIBP on. Door closed. Noise minimized. Lights dimmed. Pillow given. 13:29 Tib Fib Left XRAY In Process Unspecified. EDMS 13:35 Initial lab(s) drawn, by me, sent to lab. Inserted saline lock: 20 gauge in right em1 forearm, using aseptic technique. Blood collected. Flushed with 10 mL NS. 14:12 Sathish Dominguez MD is Hospitalizing Provider. sp3 16:05 No provider procedures requiring assistance completed. Patient admitted, IV remains in kc6 place. Administered Medications: 14:35 Drug: Piperacillin-Tazobactam IVPB 3.375 grams IVPB once over 60 mins; (mix in NS 100 kc6 mL) Route: IVPB; Infused Over: 60 mins; Site: right forearm; 15:35 Follow up: Response: No adverse reaction; IV Status: Completed infusion; IV Intake: kc6 100ml 14:35 Drug: NS 0.9% IV 1000 ml IV at 1 bolus Per protocol; to be given as a bolus over 60 kc6 minutes Route: IV; Rate: 1 bolus; Site: right forearm; 16:04 Follow up: Response: No adverse reaction; IV Status: Infusion continued upon admission kc6 16:04 Drug: vancoMYCIN IVPB 1 grams IVPB once over 2 hrs Route: IVPB; Infused Over: 2 hrs; kc6 Site: right forearm; 16:04 Follow up: Response: No adverse reaction; IV Status: Infusion continued upon admission; kc6 IV Intake: 250ml Medication: 16:05 VIS not applicable for this client. kc6 Intake: 15:35 IV: 100ml; Total: 100ml. kc6 16:04 IV: 250ml; Total: 350ml. kc6 Outcome: 14:13 Decision to Hospitalize by Provider. sp3 16:05 Admitted to Med/surg accompanied by tech, via stretcher, room 222, with oxygen, with kc6 chart, 16:05 Condition: good 16:05 Instructed on the need for admit, 16:05 Patient left the ED. kc6 Signatures: Dispatcher [employer] EDMS Wolfgang Campbell em1 Ela Rahman RN RN Clyde Macias MD MD sp3 Niesha Hurst RN RN kc6 Sandy Christie mg5
[2024-10-17] MEDS ORDERED: VANCOMYCIN 1 GM/VIAL ONE (14:27)
[2024-10-17] MEDS ORDERED: NA CHLORIDE 0.9% 250 ML ONE (14:27)
[2024-10-17] MEDS ORDERED: NA CHLORIDE 0.9% 100 ML ONE (14:27)
[2024-10-17] MEDS ORDERED: PIPERACIL/TAZO 3.375 GM VIAL IV ONE (14:28)
[2024-10-17] MEDS ORDERED: NA CHLORIDE 0.9% 1,000 ML ONE (14:28)
--- NOTE | 2024-10-17 15:38 | P.HP ---
Certification for Inpatient Patient admitted to: Observation With expected LOS: <2 Midnights Patient will require the following post-hospital care: None Practitioner: I am a practitioner with admitting privileges, knowledge of patient current condition, hospital course, and medical plan of care. Services: Services provided to patient in accordance with Admission requirements found in Title 42 Section 412.3 of the Code of Federal Regulations <Hair Donohue - Last Filed: 10/17/24 15:33> Patient History Date of Service: 10/17/24 Reason for admission: LLE hematoma History of Present Illness: 74-year-old male with history of CAD7 previous stents, insulin-dependent diabetes, pulmonary fibrosis on home O2 at 3 L, hypertension, atrial fibrillation presents to the emergency department with chief complaint of left lower extremity bruising/swelling. Patient reports that his symptoms began on Friday of the upon waking up with some abrasions and a bit of swelling just distal to his lateral left knee on the proximal tibia area. Throughout the last few days the ecchymosis has spread circumferentially and distally to the level of the ankle. He does not recall any trauma that occurred, the abrasions and swelling were present when he woke up that morning on Friday. He does take aspirin, Plavix, prednisone at home. Bruising is quite significant, the compartments are soft he does have 2+ DP and PT pulses present, there is no significant erythema or signs of infection currently. Symptoms are patient in the hospital for night, discussed his cardiology. Cardiology okayed holding his aspirin and Plavix next couple of days, will obtain a CT and arterial Doppler for further evaluation. - Past Medical/Surgical History Diabetic: Yes -: CAD with stent -: Pulmonary fibrosis -: Pulmonary hypertension -: DM -: Cardiac catheterization - Family History Father -: GI disease, Cancer Notes: esophageal ca, reflux Mother -: Heart disease - Social History Alcohol use: Yes CD- Drugs: No Caffeine use: Yes Place of Residence: Home <Hair Donohue - Last Filed: 10/17/24 15:33> Date of Service: 10/17/24 <Sathish Dominguez - Last Filed: 10/17/24 17:33> Allergies No Known Allergies Allergy (Verified 09/21/23 00:13) Home Medications: Alfuzosin HCl [Alfuzosin HCl ER] 10 mg PO DAILY 09/21/23 Aspirin [Aspirin EC] 81 mg PO DAILY 09/21/23 Atorvastatin Calcium [Lipitor] 40 mg PO DAILY 09/21/23 Dapagliflozin Propanediol [Farxiga] 5 mg PO DAILY 09/21/23 Insulin Glargine/Lixisenatide [Soliqua 100 Unit-33 Mcg/ml Pen] 20 units SQ DAILY 09/21/23 Metformin HCl [Glucophage*] 500 mg PO BID 09/21/23 Pantoprazole Sodium [Protonix] 40 mg PO DAILY 09/21/23 Clopidogrel Bisulfate [Plavix] 75 mg PO DAILY 10/08/23 Pirfenidone [Esbriet] 801 mg PO TID 07/28/24 Isosorbide Mononitrate [Isosorbide Mononitrate ER] 30 mg PO DAILY #30 tab 07/30/24 Metoprolol Succinate 50 mg PO DAILY #30 tab 07/30/24 Review of Systems 10-point ROS is otherwise unremarkable Musculoskeletal: Leg Pain <Hair Donohue - Last Filed: 10/17/24 15:33> Physical Examination - Physical Exam General: Alert, In no apparent distress, Oriented x3 HEENT: Atraumatic, PERRLA, Mucous membr. moist/pink Neck: Supple, 2+ carotid pulse no bruit, No LAD Respiratory: Clear to auscultation bilaterally, Normal air movement Cardiovascular: Regular rate/rhythm, Normal S1 S2 Gastrointestinal: Normal bowel sounds, No tenderness Musculoskeletal: No tenderness Integumentary: Other (Ecchymosis present to left lower extremity, hematoma to lateral proximal tibia bruising circumferentially down to the level of the ankle) Neurological: Normal speech, Normal strength at 5/5 x4 extr, Normal affect - Studies Laboratory Data (last 24 hrs) 10/17/24 10/17/24 10/17/24 13:25 13:25 13:25 WBC 12.80 H Hgb 10.2 L Hct 32.4 L Plt Count 219 PT 10.7 INR 0.95 APTT 29.2 Sodium 138 Potassium 4.3 BUN 24 H Creatinine 1.37 H Glucose 196 H Total Bilirubin 0.5 AST 13 L ALT < 14 L Alkaline Phosphatase 95 <Hair Donohue - Last Filed: 10/17/24 15:33> - Studies Laboratory Data (last 24 hrs) 10/17/24 10/17/24 10/17/24 13:25 13:25 13:25 WBC 12.80 H Hgb 10.2 L Hct 32.4 L Plt Count 219 PT 10.7 INR 0.95 APTT 29.2 Sodium 138 Potassium 4.3 BUN 24 H Creatinine 1.37 H Glucose 196 H Total Bilirubin 0.5 AST 13 L ALT < 14 L Alkaline Phosphatase 95 <Sathish Dominguez - Last Filed: 10/17/24 17:33> Assessment and Plan - Plan Assessment: Left lower extremity hematoma/ecchymosis-on DAPT History of CAD with 7 previous cardiac stents Atrial fibrillation with pacemaker in place History of pulmonary fibrosis on home O2 at 3 L diabetes mellitus type 2insulin-dependent Hypertension Hyperlipidemia Plan: Left lower extremity hematoma/ecchymosis-on DAPT CT and arterial Doppler for further evaluation 2+ PT and DP pulses intact, range of motion to knee, ankle intact without pain Compartments are soft in the calf/tibia area We will hold DAPT-okay with cardiology Cardiology consultation For worsening overnight History of CAD with 7 previous cardiac stents Atrial fibrillation with pacemaker in place Hold DAPT patient is supposed to have Watchman procedure next week Radiology to also see patient History of pulmonary fibrosis on home O2 at 3 L Continue home O2/as needed nebulizer treatments Will hold prednisone for now diabetes mellitus type 2insulin-dependent ACHS Accu-Chek, sliding scale insulin Hypertension Hyperlipidemia Continue home medications when verified DVT PPX: SCDs Code status: Full Discharge Plan: Home Plan to discharge in: 24 Hours - Advance Directives Does patient have a Living Will: No Does patient have a Durable POA for Healthcare: No - Code Status/Comfort Care Code Status Assessed: Yes (Full code) Critical Care: No Time Spent Managing Pts Care (In Minutes): 55 <Hair Donohue - Last Filed: 10/17/24 15:33> - Plan Patient seen and examined in ED with WEB CONSULTANT Charanjit. I performed a substantial part of the MDM during this patient's care today as noted above in the plan of care. I agree with plan of care as noted above with the following additions / corrections: Patient woke up with abrasions and localized swelling on lateral lower leg worsening swelling and ecchymosis throughout the week no significant pain, no cyanosis, no new numbness/tingling (only chronic neuropathy) on aspirin/plavix started prednisone 10mg ~7-10 days ago (~2-3 days prior to this injury) started levodopa ~2-3 weeks ago unable to recall any trauma to leg, however does admit abrasions were present on first day noticing this problem on exam, appearance of hematoma, with moderate ecchymosis at different stages - maroon/purple, yellow (see photo - obtained with patient's verbal consent for EMR) no evidence of compartment syndrome, no evidence of infection discussed with Cardiology, ok to hold aspirin/plavix check CT of leg to eval hematoma <Sathish Dominguez - Last Filed: 10/17/24 17:33>
--- NOTE | 2024-10-17 15:39 | RAD REPORT ---
EXAMINATION: Lower Ext Wo Con W/ Mpr CLINICAL INDICATION: Male, 74 years old.LLE hematoma, swelling TECHNIQUE: CT above extremity was performed without contrast. Reformats were performed. One or more o f the following dose reduction techniques were used: Automated exposure control, adjustment of the mA and/or kV according to patient size, and/or iterative reconstruction. Unless otherwise specified, incidental findings do not require dedicated imaging follow-up. [id number]. COMPARISON: Same-day radiograph FINDINGS: No fracture of the tibia or fibula is identified. Generalized subcutaneous soft tissue swelling. Ther e is a hematoma in the lateral aspect of the leg at the level of the proximal tibia which is along the superficial aspect of the anterior compartment. This hematoma measures 8 cm x 5.3 cm x 2 cm. IMPRESSION: No fracture of the tibia or fibula. Hematoma at the anterolateral aspect of the leg measuring up to 8 cm in size.
--- NOTE | 2024-10-17 15:59 | RAD REPORT ---
EXAMINATION: US LOWER EXTREMITIES ARTERIAL DOPPLER unilateral LEFT CLINICAL INDICATION: Male, 74 years old. LLE hematoma, swelling TECHNIQUE: Arterial duplex ultrasound was performed of the legs left with real-time and Doppler evalu ation. [id number]. COMPARISON: No prior exam. FINDINGS: Left leg Doppler: Grayscale: No plaque. Common femoral: Waveform: Triphasic Peak systolic velocity (cm/sec): 116 Superficial femoral: Waveform: Triphasic Peak systolic velocity (cm/sec): 103 Popliteal Waveform: Triphasic Peak systolic velocity (cm/sec): 78 Tibial: Waveform: Biphasic Peak systolic velocity (cm/sec): 43 Dorsalis pedis: Waveform: Triphasic Peak systolic velocity (cm/sec): 57 IMPRESSION: No flow-limiting arterial stenosis in the left lower extremity. Multiphasic waveforms are present.
[2024-10-17 16:52] VITALS: BMI 22.8
[2024-10-17] MEDS: METFORMIN HCL 500 MG TAB PO SCH (18:23)
[2024-10-17] MEDS ORDERED: VANCOMYCIN 1 GM in NA CHLORIDE 0.9% 250 ML IVPB SCH (20:19)
[2024-10-17] MEDS: INSULIN REGULAR (HUMAN) 100 UNIT/ML SQ SCH (21:40)
[2024-10-18] MEDS: ACETAMINOPHEN 325 MG TABLET PO PRN (02:20)
[2024-10-18] MEDS: HYDRALAZINE HCL 20 MG/ML VIAL IV PRN (04:38)
[2024-10-18 05:46] LABS: Absolute Eosinophils 0.2 K/uL (0-0.5); Absolute Lymphocytes (CBC) 0.9 K/uL (0.7-4.9); Absolute Monocytes 0.5 K/uL (0.1-1.3); Absolute Neutrophil 7.9 K/uL (1.8-8.0); Basophils % 0.3 % (0-1.3); Eosinophils % 1.7 % (0-4.4); Hematocrit 31.4 % (39.6-49.0); Hemoglobin 10.2 g/dL (13.6-17.9); Lymphocytes % 9.7 % (15.3-44.8); MCH 28.9 pg (27.0-35.0); MCHC 32.3 g/dL (32.0-36.0); MCV 89.5 fL (80-100); Monocytes % 5.6 % (3.3-12.3); Neutrophils % 82.7 % (41.7-73.7); Platelets 224 thou/uL (152-406); RBC Red Blood Cell Count 3.51 M/uL (4.33-5.43); Red Cell Distribution Width 17.6 % (12.1-15.2)
[2024-10-18 06:05] LABS: PT Prothrombin Time 10.6 SECONDS (9.4-12.5); Protime INR 0.94
[2024-10-18 06:06] LABS: Anion Gap 4.9 mEq/L (5.0-15.0); Potassium 3.9 mEq/L (3.5-5.1)
[2024-10-18] MEDS: PANTOPRAZOLE 40MG TABLET PO SCH (08:31)
[2024-10-18] MEDS ORDERED: ALFUZOSIN HCL 10 MG PO SCH (09:00)
[2024-10-18] MEDS: METOPROLOL XL 50 MG TAB PO SCH (10:24)
[2024-10-18] MEDS: ATORVASTATIN 40 MG TAB PO SCH (10:24)
[2024-10-18] MEDS: TAMSULOSIN 0.4 MG SR CAP PO SCH (10:24)
[2024-10-18] MEDS: ISOSORBIDE MONO SR 30 MG TAB PO SCH (10:25)
[2024-10-18 11:36] VITALS: O2SAT 95
[2024-10-18 12:17] VITALS: BP 115/67; TEMP 98
--- NOTE | 2024-10-18 12:27 | P.DS ---
Admission Date: 10/17/24 Discharge Date: 10/18/24 Disposition: ROUTINE DISCHARGE Discharge Condition: GOOD Reason for Admission: LLE hematoma Brief History of Present Illness: 74-year-old male with history of CAD7 previous stents, insulin-dependent diabetes, pulmonary fibrosis on home O2 at 3 L, hypertension, atrial fibrillation presents to the emergency department with chief complaint of left lower extremity bruising/swelling. Patient reports that his symptoms began on Friday of the upon waking up with some abrasions and a bit of swelling just distal to his lateral left knee on the proximal tibia area. Throughout the last few days the ecchymosis has spread circumferentially and distally to the level of the ankle. He does not recall any trauma that occurred, the abrasions and swelling were present when he woke up that morning on Friday. He does take aspirin, Plavix, prednisone at home. Bruising is quite significant, the compartments are soft he does have 2+ DP and PT pulses present, there is no significant erythema or signs of infection currently. Symptoms are patient in the hospital for night, discussed his cardiology. Cardiology okayed holding his aspirin and Plavix next couple of days, will obtain a CT and arterial Doppler for further evaluation. Hospital Course: Assessment: Left lower extremity hematoma/ecchymosis-on DAPT History of CAD with 7 previous cardiac stents Atrial fibrillation with pacemaker in place History of pulmonary fibrosis on home O2 at 3 L diabetes mellitus type 2insulin-dependent Hypertension Hyperlipidemia Patient was admitted to the hospital for suspected hematoma to the left leg with extensive ecchymosis. We monitored overnight for signs of progression/risk of compartment syndrome. He did well overnight, did not have any fevers, white blood cell count is 9.6, lactic acid initially elevated on admission is down to 1.2, renal function within normal limits, PT, INR, PTT normal. At home patient does take aspirin, Plavix. He was recommended that he hold these medications for now. This was discussed with his data collection technician who is okay with it. His compartments are soft, no pain with extension/flexion of the foot, 2+ DP/PT pulses present. Do not see concern for infection currently, negative for DVT on ultrasound, arterial Doppler with multiphasic waves throughout the left leg. CT negative for fracture or other concerning findings. Patient is scheduled for preop assessment for the Watchman procedure he is scheduled for October 20, this was discussed with the data collection technician who recommends he still report to his preoperative appointment and plan for watchman as scheduled. Vital Signs/Physical Exam: Temp Pulse Resp BP Pulse Ox 98.0 F 65 16 115/67 97 10/18/24 12:00 10/18/24 12:00 10/18/24 12:00 10/18/24 12:00 10/18/24 12:00 General: Alert, In no apparent distress, Oriented x3 HEENT: Atraumatic, PERRLA Neck: Supple, JVD not distended Respiratory: Clear to auscultation bilaterally, Normal air movement Cardiovascular: Regular rate/rhythm, Normal S1 S2 Gastrointestinal: Normal bowel sounds, No tenderness Musculoskeletal: No tenderness Integumentary: Other (Hematoma to left lateral leg just distal to the knee, ecchymosis present from knee to ankle to left leg) Neurological: Normal speech, Normal tone, Normal affect Lymphatics: No axilla or inguinal lymphadenopathy Laboratory Data at Discharge: WBC 9.60 thou/uL (4.3-10.9) 10/18/24 05:27 Hgb 10.2 g/dL (13.6-17.9) L 10/18/24 05:27 Hct 31.4 % (39.6-49.0) L 10/18/24 05:27 Plt Count 224 thou/uL (152-406) 10/18/24 05:27 PT 10.6 SECONDS (9.4-12.5) 10/18/24 05:27 INR 0.94 10/18/24 05:27 APTT 29.2 SECONDS (24.3-36.9) 10/17/24 13:25 Sodium 138 mEq/L (136-145) 10/18/24 05:27 Potassium 3.9 mEq/L (3.5-5.1) 10/18/24 05:27 BUN 22 mg/dL (7-18) H 10/18/24 05:27 Creatinine 0.98 mg/dL (0.70-1.30) 10/18/24 05:27 Glucose 94 mg/dL (74-106) 10/18/24 05:27 Total Bilirubin 0.5 mg/dL (0.2-1.0) 10/17/24 13:25 AST 13 U/L (15-37) L 10/17/24 13:25 ALT < 14 U/L (16-61) L 10/17/24 13:25 Alkaline Phosphatase 95 U/L (45-117) 10/17/24 13:25 Home Medications: Alfuzosin HCl [Alfuzosin HCl ER] 10 mg PO DAILY 09/21/23 Aspirin [Aspirin EC] 81 mg PO DAILY 09/21/23 Atorvastatin Calcium [Lipitor] 40 mg PO DAILY 09/21/23 Dapagliflozin Propanediol [Farxiga] 5 mg PO DAILY 09/21/23 Insulin Glargine/Lixisenatide [Soliqua 100 Unit-33 Mcg/ml Pen] 20 units SQ DAILY 09/21/23 Metformin HCl [Glucophage*] 500 mg PO BID 09/21/23 Pantoprazole Sodium [Protonix] 40 mg PO DAILY 09/21/23 Clopidogrel Bisulfate [Plavix] 75 mg PO DAILY 10/08/23 Pirfenidone [Esbriet] 801 mg PO TID 07/28/24 Isosorbide Mononitrate [Isosorbide Mononitrate ER] 30 mg PO DAILY #30 tab 07/30/24 Metoprolol Succinate 50 mg PO DAILY #30 tab 07/30/24 Physician Discharge Instructions: Patient was admitted to the hospital for suspected hematoma to the left leg with extensive ecchymosis. We monitored overnight for signs of progression/risk of compartment syndrome. He did well overnight, did not have any fevers, white blood cell count is 9.6, lactic acid initially elevated on admission is down to 1.2, renal function within normal limits, PT, INR, PTT normal. At home patient does take aspirin, Plavix. He was recommended that he hold these medications for now. This was discussed with his data collection technician who is okay with it. His compartments are soft, no pain with extension/flexion of the foot, 2+ DP/PT pulses present. Do not see concern for infection currently, negative for DVT on ultrasound, arterial Doppler with multiphasic waves throughout the left leg. CT negative for fracture or other concerning findings. Patient is scheduled for preop assessment for the Watchman procedure he is scheduled for October 20, this was discussed with the data collection technician who recommends he still report to his preoperative appointment and plan for watchman as scheduled. Diet: AHA Activity: Ad janice Followup: Ramsey Oliva MD [ACTIVE - CAN ADMIT] - 1-2 Days Maite Thapa MD [Primary Care Provider] - 1-2 Weeks Time spent managing pt's care (in minutes): 36
[2024-10-18] MEDS ORDERED: VANCOMYCIN 1.25 GM in NA CHLORIDE 0.9% 250 ML IVPB SCH (14:00)
== END 2024-10-18 14:10 | disposition home or self-care (01) ==
LOC: ER 11:32 → ERHOLD 14:48 → 2ND 15:10
PROVIDERS: ADMIT Hospitalist; ATTEND Hospitalist
DX: S80.12XA Contusion of left lower leg, initial encounter (principal); L03.116 Cellulitis of left lower limb; I10 Essential (primary) hypertension; I48.11 Longstanding persistent atrial fibrillation; J84.10 Pulmonary fibrosis, unspecified; I25.10 Atherosclerotic heart disease of native coronary artery without angina pectoris; E78.5 Hyperlipidemia, unspecified; E11.9 Type 2 diabetes mellitus without complications; X58.XXXA Exposure to other specified factors, initial encounter; Z99.81 Dependence on supplemental oxygen; Z95.5 Presence of coronary angioplasty implant and graft; Z79.4 Long term (current) use of insulin; Z79.82 Long term (current) use of aspirin; Z95.0 Presence of cardiac pacemaker
CPT/HCPCS: 87040 ×2; 85025 ×2; 80048; 36415; 85610 ×2; 82947 ×4; 83605 ×3; 85730; 80053; 73700; 76377; 73590; 93926; 93971; J0360; J2543; J7050; J7030; G0378

== ENCOUNTER 2024-10-23 14:56 | Emergency (ER) | payer OTHER ==
--- NOTE | 2024-10-23 18:31 | ER ---
Nurse's Notes [facility] Name: Tay Case Age: 74 yrs Sex: Male : 1950 Arrival Date: 10/23/2024 Time: 14:56 Bed 4 Private MD: Diagnosis: Acute respiratory failure;Cardiac arrest, cause unspecified Presentation: 10/23 14:56 Chief complaint: EMS states: 911 CALLED BY FAMILY FOR ACUTE DECREASE IN LOC AND bp DYSPNEA. EMS INTUBATED WITHOUT SEDATION. Coronavirus screen: At this time, the client does not indicate any symptoms associated with coronavirus-19. Ebola Screen: No symptoms or risks identified at this time. Initial Sepsis Screen: Does the patient meet any 2 criteria? Altered Mental Status. No. Patient's initial sepsis screen is negative. Does the patient have a suspected source of infection? No. Patient's initial sepsis screen is negative. Risk Assessment: Do you want to hurt yourself or someone else? Unable to obtain. Onset of symptoms is unknown. Care prior to arrival: Oral intubation, IV initiated. 20 GA, in the left forearm. 14:56 Method Of Arrival: EMS bp 14:56 Acuity: BILLY 1 bp Triage Assessment: 14:56 General: Appears distressed, slender, Behavior is unresponsive. Pain: Unable to use bp pain scale. Patient is unresponsive. EENT: No deficits noted. Neuro: Level of Consciousness is unresponsive, Oriented to none. Cardiovascular: Rhythm is A-V sequential pacer. Respiratory: Ventilator assessment: ET Tube: 7.5 23 cm at gum line. Onset: The symptoms/episode began/occurred at an unknown time. the patient has severe shortness of breath. Respiratory: Reports UNRESPONSIVE. GI: No signs and/or symptoms were reported involving the gastrointestinal system. : No signs and/or symptoms were reported regarding the genitourinary system. Derm: No deficits noted. Musculoskeletal: No deficits noted. Historical: - Allergies: 14:56 No Known Allergies; bp - Immunization history:: Adult Immunizations unknown. - Infectious Disease History:: Denies. - Social history:: Smoking status: unknown. - Hospitalizations: : The patient was recently seen at [facility], and discharged 1 week(s) ago. Screenin:56 [facility] ED Fall Risk Assessment (Adult) History of falling in the last 3 months, bp including since admission No falls in past 3 months (0 pts) Confusion or Disorientation No (0 pts) Intoxicated or Sedated No (0 pts) Impaired Gait No (0 pts) Mobility Assist Device Used No (0 pt) Altered Elimination No (0 pt) Score/Fall Risk Level 0 - 2 = Low Risk. Abuse screen: Denies threats or abuse. Denies injuries from another. Nutritional screening: No deficits noted. Tuberculosis screening: No symptoms or risk factors identified. Assessment: 14:56 General: Appears distressed, Behavior is unresponsive. Cardiovascular: Rhythm is bp Respiratory: Airway via oral intubation Respiratory effort is APNEIC APNEIC. GI: No signs and/or symptoms were reported involving the gastrointestinal system. : No signs and/or symptoms were reported regarding the genitourinary system. EENT: No deficits noted. Derm: POST OP BRUISING NOTED TO LLE S/P RECENT SURGERY. R FEM CATH ACCESS NOTED. Musculoskeletal: No deficits noted. 14:56 General: PACER SPIKES NOTED ON MONITOR, NO NIBP ON MONITOR, PALPABLE CAROTID. bp 15:06 Reassessment: EXTREME ABDULKADIR NOTED ON MONITOR. NO PALPABLE PULSE. MD AT B/S FOR CODE bp BLUE. PUPILS NOTED FIXED/DILATED, NO SPONTANEOUS RESPIRATORY EFFORT. 15:07 Reassessment: EPI 1MG IVP. bp 15:09 Reassessment: PULSE CHECK. PEA, NOTED ON MONITOR. CPR RESUMED. bp 15:10 Reassessment: EPI 1MG IVP PUSHED. bp 15:11 Reassessment: PULSE CHECK: NONE PALPATED. PEA ON MONITOR. CPR RESUMED. bp 15:13 Reassessment: EPI 1MG IVP. bp 15:14 Reassessment: 1 AMP BICARB IVP. bp 15:15 Reassessment: PULSE CHECK: NONE PALPABLE. VF ON MONITOR. bp 15:16 Reassessment: VFIB, 200 J BIPHASIC DEFIB. CPR RESUMED. bp 15:17 Reassessment: PULSE CHECK: NONE PALPATED. PEA ON MONITOR. CPR RESUMED. bp 15:18 Reassessment: PEA ON MONITOR. DR MUHAMMAD THORACIC U/S. CARDIAC STANCE NOTED. bp 15:19 Reassessment: TIME OF BY DR MUHAMMAD. bp 15:35 Reassessment: PD AT B/S. bp 15:56 Reassessment: [employer] NOTIFIED. bp 17:39 Reassessment: PER PAYROLL DIRECTOR, PT RELEASED FOR MORTUARY TRANSPORT. bp Vital Signs: 14:56 Pulse 67; Resp 14; bp Areli Coma Score: 15:30 Eye Response: none(1). Motor Response: none(1). Verbal Response: none(1). Total: 3. bo1 ED Course: 14:56 Arm band placed on. bp 14:56 Patient has correct armband on for positive identification. bp 14:56 Maintain EMS IV. Dressing intact. Good blood return noted. Site clean \T\ dry. Gauge \T\ bp site: 20 GA LEFT FA. Flushed with 10 mL NS. 15:00 Patient arrived in ED. iw 15:01 Avi Muhammad MD is Attending Physician. bo1 15:21 Karthik Beltran RN is Primary Nurse. bp 15:23 [employer] [place] [employer] dispatch called to page out the fire alarm installer general practitioner/ eb they will send an officer to come sit with the patient until the fire alarm installer can come in. 15:32 Triage completed. bp 18:29 Avi Muhammad MD is Pronouncing Provider. bo1 Administered Medications: No medications were administered Medication: 14:56 VIS not applicable for this client. bp Ventilator: 15:30 Fi02: 50%; Rate: 14min; T.V.: 500ml; Peep: 5cm; Mode: SIMV; ET tube: 7 fr (Oral); bo1 Outcome: 18:31 Patient left the ED. iw Signatures: Radha Méndez RN QUINCY iw Karthik Beltran RN RN bp Lia Prather eb Avi Muhammad MD MD bo1 Corrections: (The following items were deleted from the chart) 15:29 15:29 PMHx: coronary atherosclerosis; bo1 bo1 15:29 15:29 PMHx: Hypertensive disorder; bo1 bo1 15:29 15:29 PMHx: pulmonary fibrosis; bo1 bo1 15:29 15:29 PMHx: Atrial fibrillation; bo1 bo1 15:29 15:29 PSHx: 6 heart stents; bo1 bo1 15:39 14:56 Cardiovascular: Rhythm is bp bp
--- NOTE | 2024-10-23 18:31 | EDPHYS ---
Physician Documentation [facility] Name: Tay Case Age: 74 yrs Sex: Male : 1950 Arrival Date: 10/23/2024 Time: 14:56 Bed 4 Private MD: ED Physician Avi Muhammad HPI: 10/23 15:25 This 74 yrs old Male presents to ER via Unassigned with complaints of Shortness Of bo1 Breath. 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 Onset: The symptoms/episode began/occurred suddenly. Severity of symptoms: At their worst the symptoms were severe. Pt per EMS had to be intubated due to complete respiratory failure. Tube ETT went in w/o meds and no chest compressions needed. Recent Watchman device placed and "bruise" to LLE with admission to hospital on Friday, 1 week ago. Pt had not complained of CP but had 4 "bronchospastic attacks" since Friday. Enroute the ETCO2 was 9. Rhythm was poor with minimal pulse felt.. Historical: - Allergies: 14:56 No Known Allergies; bp - Immunization history:: Adult Immunizations unknown. - Infectious Disease History:: Denies. - Social history:: Smoking status: unknown. - Hospitalizations: : The patient was recently seen at [facility], and discharged 1 week(s) ago. ROS: 15:29 Unable to obtain ROS due to patient distress, Intubated with tube in good position, sat bo1 \\T\\ unreadable. 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 bo1 15:30 Constitutional: The patient appears comatose, listless, pale, 15:30 Eyes: Corneas: No reflex, pupils dilated, 15:30 Neck: External neck: no acute changes, 15:30 Chest/axilla: Inspection: Recent Watchman placement, 15:30 Cardiovascular: Pulses: pulse deficits are appreciated, weak, Heart sounds: Weak, 15:30 Respiratory: severe repiratory distress is noted, Pt being bagged, now placed on ventilator, 15:30 Abdomen/GI: Inspection: abdomen appears normal, Scaphoid, 15:30 : Male external genitalia: normal, 15:30 Musculoskeletal/extremity: Extensive bruising to the left lower leg, non-tense. 15:30 Neuro: Unable to exam, Vital Signs: 14:56 Pulse 67; Resp 14; bp [place] Coma Score: 15:30 Eye Response: none(1). Motor Response: none(1). Verbal Response: none(1). Total: 3. bo1 Ventilator: 15:30 Fi02: 50%; Rate: 14min; T.V.: 500ml; Peep: 5cm; Mode: SIMV; ET tube: 7 fr (Oral); bo1 Procedures: 15:37 CPR: See CPR flow sheet. Initial patient assessment: unresponsive, pupils fixed \\T\\ bo1 dilated, intubated, Meds given: See Meds list. Epinephrine X 3, Defibrillation: 200 joules X 1. CPR was stopped at 15:19. MDM: 15:01 Medical Screening Exam initiated bo1 15:38 Differential Diagnosis Cardiopulmonary arrest. Data reviewed: vital signs, EMS record, bo1 Monitors. ED course: Pt came in respiratory failure intubated by EMS and rhythm changed to low voltage to VF and shocked to PEA. After CPR, std ACLS and 3 rounds of EPI and 1 defib at 200J. No cardiac sounds by auscultation and bedside ultrasound. Cardiac standstill with PEA. Code Blue terminated at 1519 hrs. Family informed.. 10/23 15:35 Order name: Glucose, Ancillary Testing; Complete Time: 18:30 EDMS 10/23 15:02 Order name: Cardiac monitoring; Complete Time: 15:46 bo1 10/23 15:02 Order name: IV Saline Lock; Complete Time: 15:47 bo1 10/23 15:02 Order name: O2 Per Protocol; Complete Time: 15:47 bo1 10/23 15:02 Order name: O2 Sat Monitoring; Complete Time: 15:47 bo1 Administered Medications: No medications were administered Disposition: 15:42 . Co-signature as Attending Physician, Avi Muhammad MD. bo1 Disposition Summary: 10/23/24 18:30 Patient Notes: Location: Home bo1 Pronouncing Physician: Avi Muhammad bo1 Time of : 15:19 10/23/2024 bo1 Diagnosis - Acute respiratory failure bo1 - Cardiac arrest, cause unspecified bo1 Critical care time excluding procedures: 15:42 Critical care time: Bedside Care: 25 minutes, Family Intervention: 10 minutes. Total bo1 time: 35 minutes Signatures: Dispatcher [employer] EDKarthik Saenz RN RN bp Oei, Benjamin, MD MD bo1 Corrections: (The following items were deleted from the chart) 15:02 15:02 BASIC METABOLIC PANEL+C.LAB.BRZ ordered. EDMS EDMS 15:02 15:02 CBC+H.LAB.BRZ ordered. EDMS EDMS 15:02 15:02 D-DIMER+COAG.LAB.BRZ ordered. EDMS EDMS 15:02 15:02 HEPATIC FUNCTION+C.LAB.BRZ ordered. EDMS EDMS 15:02 15:02 PROBNP+C.LAB.BRZ ordered. EDMS EDMS 15:02 15:02 PROTIME (+INR)+COAG.LAB.BRZ ordered. EDMS EDMS 15:02 15:02 Troponin High Sensitivity+C.LAB.BRZ ordered. EDMS EDMS 15:02 15:02 Chest Single View+RAD.RAD.BRZ ordered. EDMS EDMS 15:02 15:02 Arterial Blood Gas+RC.LAB.BRZ ordered. EDMS EDMS 15:29 15:29 PMHx: coronary atherosclerosis; bo1 bo1 15:29 15:29 PMHx: Hypertensive disorder; bo1 bo1 15:29 15:29 PMHx: pulmonary fibrosis; bo1 bo1 15:29 15:29 PMHx: Atrial fibrillation; bo1 bo1 15:29 15:29 PSHx: 6 heart stents; bo1 bo1 15:46 15:02 EKG - Nurse/Tech ordered. bo1 bp 15:46 15:02 Labs collected and sent ordered. bo1 bp
== END 2024-10-23 18:31 | disposition expired ==
LOC: ER 14:56
DX: J96.00 Acute respiratory failure, unspecified whether with hypoxia or hypercapnia (principal); I46.9 Cardiac arrest, cause unspecified
CPT/HCPCS: 82947; 92950; 94002; 99291; 99292